=== PATIENT | female | born 1960 | race Caucasian/White ===

== ENCOUNTER → 2017-01-29 | Outpatient (CLI) | payer MEDICARE ==
--- NOTE | 2017-01-30 09:29 | MM ---
Reason for exam: additional evaluation requested from prior study. Last mammogram was performed 1 year and 8 months ago. History: Patient is postmenopausal and has history of high-risk lesion on a previous biopsy at age 52. Family history of breast cancer in maternal aunt, breast cancer in maternal aunt at age 60, and breast cancer in mother at age 71. High risk u/S right breast localization of the right breast, March 10, 2012. High risk US RT VAD breast biopsy of the right breast, February 27, 2012. Benign left mammotome panel of the left breast, October 04, 2008. Took hormonal contraceptives for 9 years beginning at age 19. Indicated problem(s): lump or thickening and pain in the left breast. Physical Findings: Nurse did not find any significant physical abnormalities on exam. MG 3D Diag Mammo W/Cad ELISABET Bilateral CC and MLO view(s) were taken. Prior study comparison: May 29, 2015, bilateral MG 3d screening mammo w/cad. May 19, 2014, right breast MG work up mamm w CAD RT. The breast tissue is heterogeneously dense. This may lower the sensitivity of mammography. Stable benign calcifications. There is chronic nodularity bilaterally. There is no dominant lesion. No significant new findings when compared with previous films. These results were verbally communicated with the patient and result sheet given to the patient on 01/29/17. ASSESSMENT: Benign, BI-RAD 2 RECOMMENDATION: Follow-up diagnostic mammogram of both breasts in 1 year. Manage patient on a clinical basis.
== END | disposition home or self-care (01) ==
LOC: RADMAMWWP 14:14
PROVIDERS: ATTEND Obstetrics & Gynecology
DX: N63 Unspecified lump in breast (principal)
CPT/HCPCS: G0204; G0279

== ENCOUNTER → 2017-06-30 | Outpatient (CLI) | payer MEDICARE ==
--- NOTE | 2017-06-30 21:42 | CT ---
EXAMINATION TYPE: CT sinus wo con DATE OF EXAM: 06/30/2017 COMPARISON: CT sinuses August 28, 2014. HISTORY: Chronic sinusitis per order. Difficulty breathing per patient. CT DLP: 603 mGycm. Automated Exposure Control for Dose Reduction was Utilized. TECHNIQUE: CT scan of the sinuses is performed without contrast, axial images are obtained, coronal r eformatted images are also reviewed. FINDINGS: There is new mild to moderate mucosal thickening right maxillary sinus with frothy opacific ation inferiorly. There is persistent mild mucosal thickening anterior left ethmoid sinuses. Remainde r paranasal sinuses are clear. The surgically treated ostiomeatal complex remains patent bilaterally on the coronal images. Visualized portion of mastoid air cells show no abnormal opacification. The globes are intact bilate rally. Visualized portion of brain parenchyma is unremarkable. There is vascular calcification of di stal internal carotid arteries bilaterally demonstrated slightly more prominent on current study. IMPRESSION: Recurrent acute on chronic right maxillary sinus disease despite evidence of prior sinus surgery.
== END ==
LOC: RADCTMAIN 16:21
PROVIDERS: ATTEND Internal Medicine
DX: J01.01 Acute recurrent maxillary sinusitis (principal); J32.0 Chronic maxillary sinusitis
CPT/HCPCS: 70486

== ENCOUNTER 2017-08-25 11:49 | Inpatient (IN) | payer MEDICARE ==
[2017-08-25] MEDS ORDERED: ALBUTEROL NEBULIZED 2.5 MG/3 ML INHALATION STA (12:20)
[2017-08-25] MEDS ORDERED: SODIUM CHLORIDE 0.9% 500 ML IV STA (12:20)
[2017-08-25] MEDS ORDERED: methylPREDNISolone SOD SUCCI 125 MG/2 ML VIAL IV STA (12:20)
[2017-08-25] MEDS ORDERED: SODIUM CHLORIDE 0.9% 1,000 ML IV STA (12:20)
[2017-08-25 12:43] LABS: Basophils # (A) 0.1 k/uL (0-0.2); Basophils % (A) 0 %; Eosinophils # (A) 0.4 k/uL (0-0.7); Eosinophils % (A) 4 %; HCT 35.7 % (34.0-46.0); HGB 12.4 gm/dL (11.4-16.0); Lymphocytes # (A) 2.5 k/uL (1.0-4.8); Lymphocytes % (A) 22 %; MCH 30.5 pg (25.0-35.0); MCHC 34.6 g/dL (31.0-37.0); MCV 88.2 fL (80.0-100.0); Mean Platelet Volume 6.7; Monocytes # (A) 0.8 k/uL (0-1.0); Monocytes % (A) 7 %; Neutrophils # (A) 7.5 k/uL (1.3-7.7); Neutrophils % (A) 65 %; Platelet Count 496 k/uL (150-450); RBC 4.05 m/uL (3.80-5.40); RDW 13.7 % (11.5-15.5); WBC 11.5 k/uL (3.8-10.6)
[2017-08-25 12:45] LABS: Albumin 4.2 g/dL (3.5-5.0); Calcium 10.4 mg/dL (8.4-10.2); Potassium 3.7 mmol/L (3.5-5.1); Total Bilirubin 0.9 mg/dL (0.2-1.3)
[2017-08-25] MEDS: MORPHINE SULFATE 4MG/4ML SYRG IVP STA ×2 (12:47→14:02)
--- NOTE | 2017-08-25 12:47 | XR ---
EXAMINATION TYPE: XR chest 2V DATE OF EXAM: 08/25/2017 COMPARISON: 11/28/2014 INDICATION: Difficulty breathing TECHNIQUE: Frontal and lateral views of the chest are obtained. FINDINGS: The heart size is normal. The pulmonary vasculature is normal. The lungs are clear. IMPRESSION: 1. No acute pulmonary process.
[2017-08-25 12:54] LABS: D-Dimer 3.79 mg/L FEU (<0.60); Partial Thromboplastin Time 23.6 sec (22.0-30.0); Prothrombin Time 9.5 sec (9.0-12.0)
[2017-08-25 12:56] LABS: Creatine Kinase 129 U/L (30-135)
[2017-08-25 13:10] LABS: Troponin I <0.012 ng/mL (0.000-0.034)
--- NOTE | 2017-08-25 15:12 | US ---
EXAMINATION TYPE: US venous doppler duplex LE LT DATE OF EXAM: 08/25/2017 2:29 PM COMPARISON: NONE CLINICAL HISTORY: Pain. SIDE PERFORMED: Left TECHNIQUE: The lower extremity deep venous system is examined utilizing real time linear array sonog leta with graded compression, doppler sonography and color-flow sonography. VESSELS IMAGED: External Iliac Vein (EIV) Common Femoral Vein Deep Femoral Vein Greater Saphenous Vein * Femoral Vein Popliteal Vein Small Saphenous Vein * Proximal Calf Veins (* superficial vessels) Left Leg: Negative for DVT IMPRESSION: 1. No diagnostic evidence of DVT as visualized.
--- NOTE | 2017-08-25 15:44 | ED ---
SOB HPI - General Chief Complaint: Shortness of Breath Stated Complaint: Diff Breathing Time Seen by Provider: 08/25/17 12:13 Source: patient Mode of arrival: wheelchair Limitations: no limitations - History of Present Illness Initial Comments: 67 years old female had left knee surgery done about 7 days ago presents with the shortness of breath shortness of breath been ongoing for a few days she has no history of pulmonary embolism or DVT she does have a history of firm high blood pressure and now she is quite short winded he doesn't quite fit to take a deep breath and she is tachycardic. Denies any headaches no neck stiffness short of breath no abdominal pain no frequency urgency dysuria - Related Data Home Medications Medication Instructions Recorded Confirmed Citalopram Hydrobromide [CeleXA] 20 mg PO HS 12/20/13 08/25/17 Acyclovir [Zovirax] 400 mg PO DAILY PRN 12/06/15 08/25/17 Albuterol Inhaler [Ventolin Hfa 2 puff INHALATION RT-Q4H PRN 12/06/15 08/25/17 Inhaler] Fluticasone/Salmeterol [Advair 1 puff INHALATION RT-DAILY 12/06/15 08/25/17 250-50 Diskus] Montelukast Sodium [Singulair] 10 mg PO DAILY 12/06/15 08/25/17 Multivitamins, Thera [Multivitamin] 1 tab PO HS 12/06/15 08/25/17 Aspirin EC [Ecotrin Low Dose] 81 mg PO BID 08/25/17 08/25/17 Atorvastatin Calcium [Lipitor] 10 mg PO HS 08/25/17 08/25/17 Cyclobenzaprine [Flexeril] 5 mg PO HS 08/25/17 08/25/17 Fluticasone Nasal [place] [Flonase 1 spray EA NOSTRIL DAILY 08/25/17 08/25/17 Nasal [place]] Gabapentin [Neurontin] 100 mg PO BID 08/25/17 08/25/17 Losartan/Hydrochlorothiazide 1 tab PO HS 08/25/17 08/25/17 [Hyzaar 100-25 Tablet] Meloxicam [Mobic] 7.5 mg PO BID 08/25/17 08/25/17 [place]-3 Fatty Acids [[place]-3] 1,000 mg PO HS 08/25/17 08/25/17 amLODIPine [Norvasc] 2.5 mg PO HS 08/25/17 08/25/17 oxyCODONE-APAP 5-325MG [Percocet 1 tab PO Q4H PRN 08/25/17 08/25/17 5-325 mg] rOPINIRole HCL [Requip] 0.25 mg PO HS 08/25/17 08/25/17 Allergies Allergy/AdvReac Type Severity Reaction Status Date / Time No Known Allergies Allergy Verified 08/25/17 12:37 Review of Systems ROS Statement: Those systems with pertinent positive or pertinent negative responses have been documented in the HPI. ROS Other: All systems not noted in ROS Statement are negative. Past Medical History Past Medical History: Hypertension History of Any Multi-Drug Resistant Organisms: None Reported Past Surgical History: Adenoidectomy, Orthopedic Surgery, Tonsillectomy Additional Past Surgical History / Comment(s): right and left shoulder, lt hip, left knee, nasal surgery Past Psychological History: Depression Smoking Status: Never smoker Past Alcohol Use History: None Reported Past Drug Use History: None Reported General Exam - General Exam Comments Initial Comments: General: The patient is awake and alert, in no distress, and does not appear acutely ill. Very anxious Skin: Skin is warm and dry and no rashes or lesions are noted. Eye: Pupils are equal, round and reactive to light, extra-ocular movements are intact; there is normal conjunctiva bilaterally. Ears, nose, mouth and throat: There are moist mucous membranes and no oral lesions. Neck: The neck is supple, there is no tenderness or JVD. Cardiovascular: There is a regular rate and rhythm. No murmur, rub or gallop is appreciated. During the exam and noticed her heart rate jumps up to 124, the monitor 8 look like a sinus tachycardia she would get tachycardic even when she is only talking was resting Respiratory: To auscultation bilateral, decreased breath sounds bilateral Gastrointestinal: Soft, non-distended, non-tender abdomen without masses or organomegaly noted. There is no rebound or guarding present. Bowel sounds are unremarkable. Back: There is no tenderness to palpation in the midline. There is no obvious deformity. Musculoskeletal: Left knee, she status post total knee swelling noticed below knee and above-knee no obvious signs of infection Neurological: CN II-XII intact, Cranial nerves III through XII are intact. There are no obvious motor or sensory deficits. Coordination appears grossly intact. Speech is normal. Psychiatric: Cooperative, appropriate mood & affect, normal judgment. Limitations: no limitations Course Vital Signs 08/25/17 08/25/17 08/25/17 11:57 12:20 12:42 Temperature 98.3 F Pulse Rate 114 H 100 Respiratory 24 20 Rate Blood Pressure 114/73 O2 Sat by Pulse 97 Oximetry 08/25/17 08/25/17 13:43 14:00 Temperature Pulse Rate 97 85 Respiratory 18 Rate Blood Pressure 113/55 O2 Sat by Pulse 99 Oximetry EKG is a sinus tachycardia ventricular rate is 1 or 2 FL interval is 156 QRS duration is 1 of 4 QT/QTc is 356/463 review of this EKG does not reveal any ST elevation or ST depression , Devious sitting assessment noticed him white count is normal d-dimer is quite elevated noticed creatinine is 1.5 one her aspirin and was 0.8 troponin is negative EKG didn't show any STEMI chest x-rays unremarkable, ultrasound is venous Doppler of the left leg is normal considering she is tachycardic and she is short-winded she is tachycardic even well she is resting she needs to be admitted for further cardiovascular evaluation she would get the 3 sets of cardiac markers cardiology consult and also plan to do a VQ scan since creatinine is high and now Dr. Coughlin or be consulted since he is her manufacturing technologist Medical Decision Making - Lab Data Result diagrams: 08/25/17 12:21 08/25/17 12:21 Lab Results 08/25/17 08/25/17 08/25/17 Range/Units 12:21 12:21 12:21 WBC 11.5 H (3.8-10.6) k/uL RBC 4.05 (3.80-5.40) m/uL Hgb 12.4 (11.4-16.0) gm/dL Hct 35.7 (34.0-46.0) % MCV 88.2 (80.0-100.0) fL MCH 30.5 (25.0-35.0) pg MCHC 34.6 (31.0-37.0) g/dL RDW 13.7 (11.5-15.5) % Plt Count 496 H (150-450) k/uL Neutrophils % 65 % Lymphocytes % 22 % Monocytes % 7 % Eosinophils % 4 % Basophils % 0 % Neutrophils # 7.5 (1.3-7.7) k/uL Lymphocytes # 2.5 (1.0-4.8) k/uL Monocytes # 0.8 (0-1.0) k/uL Eosinophils # 0.4 (0-0.7) k/uL Basophils # 0.1 (0-0.2) k/uL PT (9.0-12.0) sec INR (<1.2) APTT (22.0-30.0) sec D-Dimer (<0.60) mg/L FEU Sodium 139 (137-145) mmol/L Potassium 3.7 (3.5-5.1) mmol/L Chloride 100 (98-107) mmol/L Carbon Dioxide 21 L (22-30) mmol/L Anion Gap 18 mmol/L BUN 22 H (7-17) mg/dL Creatinine 1.51 H (0.52-1.04) mg/dL Est GFR (CKD-EPI)AfAm 44 (>60 ml/min/1.73 sqM) Est GFR (CKD-EPI)NonAf 39 (>60 ml/min/1.73 sqM) Glucose 115 H (74-99) mg/dL Calcium 10.4 H (8.4-10.2) mg/dL Total Bilirubin 0.9 (0.2-1.3) mg/dL AST 30 (14-36) U/L ALT 47 (9-52) U/L Alkaline Phosphatase 91 (38-126) U/L Total Creatine Kinase 129 (30-135) U/L CK-MB (CK-2) 2.0 (0.0-2.4) ng/mL CK-MB (CK-2) Rel Index 1.6 Troponin I <0.012 (0.000-0.034) ng/mL Total Protein 7.0 (6.3-8.2) g/dL Albumin 4.2 (3.5-5.0) g/dL 08/25/17 Range/Units 12:21 WBC (3.8-10.6) k/uL RBC (3.80-5.40) m/uL Hgb (11.4-16.0) gm/dL Hct (34.0-46.0) % MCV (80.0-100.0) fL MCH (25.0-35.0) pg MCHC (31.0-37.0) g/dL RDW (11.5-15.5) % Plt Count (150-450) k/uL Neutrophils % % Lymphocytes % % Monocytes % % Eosinophils % % Basophils % % Neutrophils # (1.3-7.7) k/uL Lymphocytes # (1.0-4.8) k/uL Monocytes # (0-1.0) k/uL Eosinophils # (0-0.7) k/uL Basophils # (0-0.2) k/uL PT 9.5 (9.0-12.0) sec INR 1.0 (<1.2) APTT 23.6 (22.0-30.0) sec D-Dimer 3.79 H (<0.60) mg/L FEU Sodium (137-145) mmol/L Potassium (3.5-5.1) mmol/L Chloride (98-107) mmol/L Carbon Dioxide (22-30) mmol/L Anion Gap mmol/L BUN (7-17) mg/dL Creatinine (0.52-1.04) mg/dL Est GFR (CKD-EPI)AfAm (>60 ml/min/1.73 sqM) Est GFR (CKD-EPI)NonAf (>60 ml/min/1.73 sqM) Glucose (74-99) mg/dL Calcium (8.4-10.2) mg/dL Total Bilirubin (0.2-1.3) mg/dL AST (14-36) U/L ALT (9-52) U/L Alkaline Phosphatase (38-126) U/L Total Creatine Kinase (30-135) U/L CK-MB (CK-2) (0.0-2.4) ng/mL CK-MB (CK-2) Rel Index Troponin I (0.000-0.034) ng/mL Total Protein (6.3-8.2) g/dL Albumin (3.5-5.0) g/dL Disposition Clinical Impression: Dyspnea, Tachycardia Disposition: ADMITTED IP TO THIS [facility] Condition: Good Referrals: Esvin More DO [Primary Care Provider] - 1-2 days
[2017-08-25] MEDS ORDERED: SODIUM CHLORIDE 0.9% 1,000 ML IV ONE (16:03)
[2017-08-25] MEDS ORDERED: NALOXONE 0.4 MG/ML 1 ML VIAL IV PRN (16:05)
[2017-08-25] MEDS ORDERED: ACETAMINOPHEN TAB 325 MG TAB PO PRN (16:05)
[2017-08-25] MEDS ORDERED: MORPHINE SULF 5MG/10ML VL IV PRN (16:05)
[2017-08-25] MEDS ORDERED: ACYCLOVIR 200 MG CAP PO PRN (16:14)
--- NOTE | 2017-08-25 16:43 | P.HPIM ---
History of Present Illness H&P Date: 08/25/17 Chief Complaint: Shortness of breath Patient is a 57-year-old female with a known history of hypertension, COPD and depression came to ER with complaints of difficulty breathing for the past 1 week. Patient is also complaining of cough with yellowish to brown sputum production. Also is complaining of lack of energy and weakness. Patient had left knee total arthroplasty done on July. Patient says that since then she hasn't been feeding very well. Patient has been having increase oral intake. Patient completed her steroid tapering course yesterday. Patient was taking Motrin for the pain and patient was on aspirin for DVT prophylaxis and surgery. Patient was seen by visiting nurse and was found have tachycardic. Patient was sent to Hospital for further evaluation. Patient is not on home oxygen. She was tachycardic with heart rate of 115 on admission. Lower extremities duplex scan is negative.. Creatinine increased from 0.8-1.5. Patient denied any increased left leg swelling or pain. she has no history of pulmonary embolism or DVT . she is quite short winded he doesn't quite fit to take a deep breath and she is tachycardic. Denies any headaches no neck stiffness short of breath no abdominal pain no frequency urgency dysuria. Patient follows with Dr. Coughlin in the pulmonary clinic and primary care physician is Dr. More Chest x-ray showed no acute process D-dimer 3.79 Review of Systems Constitutional: Patient denies any fever or chills . Generalized weakness and malaise. No weight loss Abdomen: Patient does have nausea. No vomiting. No abdominal pain no diarrhea Cardiovascular: Patient denies any chest pain , no leg swelling Respiratory: Cough with sputum production grayish and shortness of breath. Neurologic: Patient denied any numbness or tingling headache. Musculoskeletal: Patient denies any complaints of joint swelling or deformity. Skin: Negative Psychiatric: Negative Endocrine: No heat or cold intolerance. No recent weight gain. Genitourinary: No dysuria or hematuria. All other 14 point ROS negative except the above Past Medical History Past Medical History: Hypertension History of Any Multi-Drug Resistant Organisms: None Reported Past Surgical History: Adenoidectomy, Orthopedic Surgery, Tonsillectomy Additional Past Surgical History / Comment(s): right and left shoulder, lt hip, left knee, nasal surgery Past Psychological History: Depression Smoking Status: Never smoker Past Alcohol Use History: None Reported Past Drug Use History: None Reported Medications and Allergies Home Medications Medication Instructions Recorded Confirmed Type Citalopram Hydrobromide [CeleXA] 20 mg PO HS 12/20/13 08/25/17 History Acyclovir [Zovirax] 400 mg PO DAILY PRN 12/06/15 08/25/17 History Albuterol Inhaler [Ventolin Hfa 2 puff INHALATION RT-Q4H PRN 12/06/15 08/25/17 History Inhaler] Fluticasone/Salmeterol [Advair 1 puff INHALATION RT-DAILY 12/06/15 08/25/17 History 250-50 Diskus] Montelukast Sodium [Singulair] 10 mg PO DAILY 12/06/15 08/25/17 History Multivitamins, Thera [Multivitamin] 1 tab PO HS 12/06/15 08/25/17 History Aspirin EC [Ecotrin Low Dose] 81 mg PO BID 08/25/17 08/25/17 History Atorvastatin Calcium [Lipitor] 10 mg PO HS 08/25/17 08/25/17 History Cyclobenzaprine [Flexeril] 5 mg PO HS 08/25/17 08/25/17 History Fluticasone Nasal [place] [Flonase 1 spray EA NOSTRIL DAILY 08/25/17 08/25/17 History Nasal [place]] Gabapentin [Neurontin] 100 mg PO BID 08/25/17 08/25/17 History Losartan/Hydrochlorothiazide 1 tab PO HS 08/25/17 08/25/17 History [Hyzaar 100-25 Tablet] Meloxicam [Mobic] 7.5 mg PO BID 08/25/17 08/25/17 History [place]-3 Fatty Acids [[place]-3] 1,000 mg PO HS 08/25/17 08/25/17 History amLODIPine [Norvasc] 2.5 mg PO HS 08/25/17 08/25/17 History oxyCODONE-APAP 5-325MG [Percocet 1 tab PO Q4H PRN 08/25/17 08/25/17 History 5-325 mg] rOPINIRole HCL [Requip] 0.25 mg PO HS 08/25/17 08/25/17 History Allergies Allergy/AdvReac Type Severity Reaction Status Date / Time No Known Allergies Allergy Verified 08/25/17 12:37 Physical Exam Vitals: Vital Signs Temp Pulse Resp BP Pulse Ox 08/25/17 16:12 100 20 113/51 96 08/25/17 15:00 103 H 20 115/52 98 08/25/17 14:00 85 18 113/55 99 08/25/17 13:43 97 08/25/17 12:42 100 08/25/17 12:20 20 08/25/17 11:57 98.3 F 114 H 24 114/73 97 Intake and Output 08/25/17 08/25/17 08/25/17 06:59 14:59 22:59 Other: Weight 81.647 kg PHYSICAL EXAMINATION: Patient is lying in the bed comfortably, no acute distress, awake alert and oriented.. HEENT: Normocephalic. Neck is supple. Pupils reactive. Nostrils clear. Oral cavity is moist. Ears reveal no drainage. Neck reveals no JVD, carotid bruits, or thyromegaly. CHEST EXAMINATION: Trachea is central. Symmetrical expansion. Prolonged expiration. No wheezing no crackles or rhonchi CARDIAC: Normal S1, S2 with no gallops. No murmurs ABDOMEN: Soft. Bowel sounds normal. No organomegaly. No abdominal bruits. Extremities: reveal no edema. No clubbing or cyanosis Neurologically awake, alert, oriented x3 with well-coordinated movements. No focal deficits noted Skin: No rash or skin lesions. Psychiatric: Cooperative. Nonsuicidal Musculoskeletal: No joint swelling or deformity. Normal range of motion. Results CBC & Chem 7: 08/25/17 12:21 08/25/17 12:21 Labs: Abnormal Lab Results - Last 24 Hours (Table) 08/25/17 08/25/17 08/25/17 Range/Units 12:21 12:21 12:21 WBC 11.5 H (3.8-10.6) k/uL Plt Count 496 H (150-450) k/uL D-Dimer 3.79 H (<0.60) mg/L FEU Carbon Dioxide 21 L (22-30) mmol/L BUN 22 H (7-17) mg/dL Creatinine 1.51 H (0.52-1.04) mg/dL Glucose 115 H (74-99) mg/dL Calcium 10.4 H (8.4-10.2) mg/dL Thrombosis Risk Factor Assmnt - DVT/VTE Prophylaxis DVT/VTE Prophylaxis: Pharmacologic Prophylaxis ordered Assessment and Plan Assessment: Shortness of breath likely due to COPD with mild exacerbation Suspected pulmonary embolism. With the recent surgery. Patient was tachycardic and shortness of breath on admission with elevated d-dimer D-dimer elevated. VQ scan was ordered to rule out pulmonary embolism. Duplex scan is negative for DVT Generalized weakness and poor oral intake Acute kidney injury most likely prerenal Hypertension GI and DVT prophylaxis Anxiety depression Degenerative joint disease Chronic neck pain, spinal stenosis and Shoulder pain Plan: Patient will be continued on breathing treatments. Patient was given a dose of IV Solu-Medrol in the ER. She recently finished steroid tapering course. VQ scan was ordered due to acute kidney injury to rule out pulmonary embolism. Continue with home medications and pain management. DVT prophylaxis with heparin subcu. Pulmonary will be consulted. Further recommendations based on the clinical course. Time with Patient: Greater than 30
[2017-08-25] MEDS: oxyCODONE-APAP 5-325MG 1 EACH TAB PO PRN ×2 (17:31→21:44)
--- NOTE | 2017-08-25 17:31 | NM ---
EXAMINATION TYPE: NM pul vent and perfuse DATE OF EXAM: 08/25/2017 COMPARISON: Chest radiograph of the same date. HISTORY: Shortness of breath TECHNIQUE: Utilizing inhalation of 64.7 mCi Tc 99m DTPA aerosol and intravenous injection of 5.11 mC i of Tc 99m MAA, ventilation and perfusion images are acquired post injection in multiple projections . FINDINGS: There is a large matched defect within the left upper lobe with perfusion defect larger than the vent ilation defect. This is seen only on the lateral images. Wedge-shaped perfusion defect within the lef t lower lobe on the LPO images is also a matched defect. No corresponding abnormalities are seen on c hest radiograph IMPRESSION: Intermediate probability for pulmonary embolism with matched defects in the left upper lobe and left lower lobe.
[2017-08-25] MEDS ORDERED: HEPARIN SODIUM,PORCINE 5,000 UNIT/ML 1 ML VIAL IV PRN (17:46)
[2017-08-25] MEDS ORDERED: HEPARIN SODIUM,PORCINE 10,000 UNIT/ML 1 ML VIAL IV ONE (17:46)
[2017-08-25] MEDS ORDERED: HEPARIN SOD,PORK IN 0.45% NACL 25,000 UNIT in 0.45% NACL 1 500ML.BAG IV SCH (18:00)
[2017-08-25 19:45] LABS: Creatine Kinase MB 2.1 ng/mL (0.0-2.4)
[2017-08-25] MEDS ORDERED: NON-FORMULARY DRUG (Omega-3 Fatty Acids [Omega-3] 1,000 MG) PO SCH (21:00)
[2017-08-25] MEDS: ATORVASTATIN 10 MG TAB PO SCH (21:44)
[2017-08-25] MEDS: GABAPENTIN 100 MG CAP PO SCH (21:44)
[2017-08-25] MEDS: CYCLOBENZAPRINE 5 MG TAB PO SCH (21:44)
[2017-08-25] MEDS: MULTIVITAMINS, THERA 1 EACH TAB PO SCH (21:44)
[2017-08-25] MEDS: CITALOPRAM HYDROBROMIDE 20 MG TAB PO SCH (21:44)
[2017-08-25] MEDS: amLODIPine 2.5 MG TAB PO SCH (21:45)
[2017-08-25] MEDS: PANTOPRAZOLE SODIUM 40 MG GRANULE PKT PO SCH (21:45)
[2017-08-25] MEDS: ASPIRIN 81 MG PO SCH (21:45)
[2017-08-25] MEDS: LOSARTAN-HCTZ 50-12.5 MG 1 EACH TAB PO SCH (21:45)
[2017-08-25] MEDS ORDERED: MORPHINE ORAL SOLN 10 MG/5 ML CUP PO PRN (22:14)
[2017-08-26] MEDS ORDERED: HEPARIN SODIUM,PORCINE 5,000 UNIT/ML 1 ML VIAL SQ SCH
[2017-08-26 01:00] LABS: Creatine Kinase MB 1.7 ng/mL (0.0-2.4)
[2017-08-26] MEDS: oxyCODONE-APAP 5-325MG 1 EACH TAB PO PRN ×3 (03:49→21:01)
[2017-08-26] MEDS: PANTOPRAZOLE SODIUM 40 MG GRANULE PKT PO SCH (06:32)
[2017-08-26 06:49] LABS: Calcium 9.7 mg/dL (8.4-10.2); Potassium 4.4 mmol/L (3.5-5.1)
[2017-08-26 06:59] LABS: Basophils % (A) 0 %; Eosinophils % (A) 0 %; HCT 31.3 % (34.0-46.0); HGB 10.2 gm/dL (11.4-16.0); Lymphocytes # (A) 1.4 k/uL (1.0-4.8); Lymphocytes % (A) 9 %; MCH 29.5 pg (25.0-35.0); MCHC 32.7 g/dL (31.0-37.0); MCV 90.2 fL (80.0-100.0); Mean Platelet Volume 6.6; Monocytes # (A) 0.6 k/uL (0-1.0); Monocytes % (A) 4 %; Neutrophils # (A) 13.8 k/uL (1.3-7.7); Neutrophils % (A) 87 %; Platelet Count 443 k/uL (150-450); RBC 3.47 m/uL (3.80-5.40); RDW 13.6 % (11.5-15.5)
[2017-08-26] MEDS: GABAPENTIN 100 MG CAP PO SCH ×2 (08:10→21:01)
[2017-08-26] MEDS: MONTELUKAST 10 MG TAB PO SCH (08:10)
[2017-08-26] MEDS: ASPIRIN 81 MG PO SCH ×2 (08:10→21:00)
[2017-08-26] MEDS: FLUTICASONE 50MCG/SPRAY NASAL 16GM EA NOSTRIL SCH (08:13)
[2017-08-26] MEDS: ALBUTEROL NEBULIZED 2.5 MG/3 ML INHALATION PRN ×4 (08:17→20:05)
[2017-08-26] MEDS: SYMBICORT 80-4.5 MCG INHALER INHALATION SCH (08:17)
--- NOTE | 2017-08-26 08:47 | P.CRDCN ---
History of Present Illness Consult date: 08/26/17 Chief complaint: Shortness of breath History of present illness: This is a pleasant [id number] female patient with past medical history significant for hypertension and dyslipidemia who presented to the emergency room complaining of shortness of breath. The patient underwent left knee surgery about a week ago and since then she has not been feeling well. She has been experiencing shortness of breath. No chest pain and no chest discomfort. No dizziness or lightheadedness and no syncope. She does have a component of asthma and she does follow with a insurance marketing rep on regular basis. She underwent a d-dimer in the emergency room and the d-dimer came in to be elevated and subsequently she underwent a VQ scan and that showed intermediate probably T4 PE and subsequently the patient was started on IV heparin. The shortness of breath is a slightly better. The EKG showed sinus tachycardia and she continues to have a heart rate around 100 beats per minute. She underwent a venous duplex study and that revealed no evidence of DVT of the left leg. The patient is not aware of any prior cardiac history. No coronary artery disease but she does have hypertension and dyslipidemia. Past Medical History Past Medical History: Asthma, Cancer, Hyperlipidemia, Hypertension, Pneumonia Additional Past Medical History / Comment(s): sinus problems/allergies, past kidney stone,bronchitis, cervical radiculopathy,pinched nerve. 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 Past Anesthesia/Blood Transfusion Reactions: No Reported Reaction Smoking Status: Never smoker - Past Family History Father Family Medical History: Congestive Heart Failure (CHF), CVA/TIA Additional Family Medical History / Comment(s): sinus problems/allergies Mother Family Medical History: Cancer Medications and Allergies Home Medications Medication Instructions Recorded Confirmed Type Citalopram Hydrobromide [CeleXA] 20 mg PO HS 12/20/13 08/25/17 History Acyclovir [Zovirax] 400 mg PO DAILY PRN 12/06/15 08/25/17 History Albuterol Inhaler [Ventolin Hfa 2 puff INHALATION RT-Q4H PRN 12/06/15 08/25/17 History Inhaler] Fluticasone/Salmeterol [Advair 1 puff INHALATION RT-DAILY 12/06/15 08/25/17 History 250-50 Diskus] Montelukast Sodium [Singulair] 10 mg PO DAILY 12/06/15 08/25/17 History Multivitamins, Thera [Multivitamin] 1 tab PO HS 12/06/15 08/25/17 History Aspirin EC [Ecotrin Low Dose] 81 mg PO BID 08/25/17 08/25/17 History Atorvastatin Calcium [Lipitor] 10 mg PO HS 08/25/17 08/25/17 History Cyclobenzaprine [Flexeril] 5 mg PO HS 08/25/17 08/25/17 History Fluticasone Nasal [facility] [Flonase 1 spray EA NOSTRIL DAILY 08/25/17 08/25/17 History Nasal [facility]] Gabapentin [Neurontin] 100 mg PO BID 08/25/17 08/25/17 History Losartan/Hydrochlorothiazide 1 tab PO HS 08/25/17 08/25/17 History [Hyzaar 100-25 Tablet] Meloxicam [Mobic] 7.5 mg PO BID 08/25/17 08/25/17 History [place]-3 Fatty Acids [[place]-3] 1,000 mg PO HS 08/25/17 08/25/17 History amLODIPine [Norvasc] 2.5 mg PO HS 08/25/17 08/25/17 History oxyCODONE-APAP 5-325MG [Percocet 1 tab PO Q4H PRN 08/25/17 08/25/17 History 5-325 mg] rOPINIRole HCL [Requip] 0.25 mg PO HS 08/25/17 08/25/17 History Allergies Allergy/AdvReac Type Severity Reaction Status Date / Time No Known Allergies Allergy Verified 08/25/17 12:37 Physical Exam Vitals: Vital Signs Temp Pulse Pulse Resp BP BP Pulse Ox 08/26/17 08:31 92 08/26/17 08:19 92 08/26/17 08:00 97.1 F L 103 H 20 122/64 96 08/26/17 04:00 99 18 142/84 95 08/26/17 00:00 97.2 F L 109 H 18 118/61 92 L 08/25/17 20:00 99.2 F 103 H 18 123/67 94 L 08/25/17 19:04 99.3 F 109 H 16 116/55 97 08/25/17 17:15 98.0 F 105 H 20 117/56 98 08/25/17 16:12 100 20 113/51 96 08/25/17 15:00 103 H 20 115/52 98 08/25/17 14:00 85 18 113/55 99 08/25/17 13:43 97 08/25/17 12:42 100 08/25/17 12:20 20 08/25/17 11:57 98.3 F 114 H 24 114/73 97 Intake and Output 08/25/17 08/26/17 08/26/17 22:59 06:59 14:59 Intake Total 195.933 240 Balance 195.933 240 Intake: Intake, IV Titration 195.933 Amount Heparin Sod,Pork in 0.45% 195.933 NaCl 25,000 unit In 0.45 % NaCl 1 500ml.bag @ 18 UNITS/KG/HR 29.39 mls/hr IV .Q17H1M [facility] Rx#: [id number] Oral 240 Other: Voiding Method Toilet Toilet # Voids 1 Weight 84.1 kg - Constitutional General appearance: no acute distress - Respiratory Respiratory: bilateral: CTA - Cardiovascular Rhythm: regular Heart sounds: normal: S1, S2 Results 08/26/17 06:10 08/26/17 06:10 Cardiac Enzymes 08/25/17 08/25/17 08/25/17 Range/Units 12:21 12:21 18:49 AST 30 (14-36) U/L CK-MB (CK-2) 2.0 2.1 (0.0-2.4) ng/mL Troponin I <0.012 (0.000-0.034) ng/mL 08/26/17 Range/Units 00:08 AST (14-36) U/L CK-MB (CK-2) 1.7 (0.0-2.4) ng/mL Troponin I (0.000-0.034) ng/mL Coagulation 08/25/17 08/26/17 08/26/17 Range/Units 12:21 00:08 06:10 PT 9.5 (9.0-12.0) sec APTT 23.6 84.8 H 51.5 H (22.0-30.0) sec CBC 08/25/17 08/26/17 Range/Units 12:21 06:10 WBC 11.5 H 16.0 H (3.8-10.6) k/uL RBC 4.05 3.47 L (3.80-5.40) m/uL Hgb 12.4 10.2 L (11.4-16.0) gm/dL Hct 35.7 31.3 L (34.0-46.0) % Plt Count 496 H 443 (150-450) k/uL Comprehensive Metabolic Panel 08/25/17 08/26/17 Range/Units 12:21 06:10 Sodium 139 137 (137-145) mmol/L Potassium 3.7 4.4 (3.5-5.1) mmol/L Chloride 100 105 (98-107) mmol/L Carbon Dioxide 21 L 21 L (22-30) mmol/L BUN 22 H 26 H (7-17) mg/dL Creatinine 1.51 H 1.14 H (0.52-1.04) mg/dL Glucose 115 H 134 H (74-99) mg/dL Calcium 10.4 H 9.7 (8.4-10.2) mg/dL AST 30 (14-36) U/L ALT 47 (9-52) U/L Alkaline Phosphatase 91 (38-126) U/L Total Protein 7.0 (6.3-8.2) g/dL Albumin 4.2 (3.5-5.0) g/dL Current Medications Generic Name Dose Route Start Last Admin Trade Name Freq PRN Reason Stop Dose Admin Acetaminophen 650 mg 08/25/17 16:05 Tylenol Tab PO Q6HR PRN Mild Pain or Fever > 100.5 Acyclovir 400 mg 08/25/17 16:14 Zovirax PO DAILY PRN virus Albuterol Sulfate 2.5 mg 08/25/17 16:14 08/26/17 08:17 Ventolin Nebulized INHALATION 2.5 mg RT-Q4H PRN Administration Shortness Of Breath Amlodipine Besylate 2.5 mg 08/25/17 21:00 08/25/17 21:45 Norvasc PO 2.5 mg HS [facility] Administration Aspirin 81 mg 08/25/17 21:00 08/26/17 08:10 Aspirin PO 81 mg BID YURIDIA Administration Atorvastatin Calcium 10 mg 08/25/17 21:00 08/25/17 21:44 Lipitor PO 10 mg HS YURIDIA Administration Budesonide/Formoterol Fumarate 2 puff 08/26/17 08:00 08/26/17 08:17 Symbicort 80-4.5 Mcg Inhaler INHALATION 2 puff RT-DAILY Y[facility]IDIA Administration Citalopram Hydrobromide 20 mg 08/25/17 21:00 08/25/17 21:44 Celexa PO 20 mg HS Y[facility]IA Administration Cyclobenzaprine HCl 5 mg 08/25/17 21:00 08/25/17 21:44 Flexeril PO 5 mg HS [facility]IA Administration Fluticasone Propionate 1 spray 08/26/17 09:00 08/26/17 08:13 Flonase Nasal [facility] EA NOSTRIL 1 spray DAILY [facility]IA Administration Gabapentin 100 mg 08/25/17 21:00 08/26/17 08:10 Neurontin PO 100 mg BID Y[facility]IDIA Administration HCTZ/Losartan Potassium 2 each 08/25/17 21:00 08/25/17 21:45 Hyzaar 50-12.5 PO 2 each HS Y[facility]IDIA Administration Heparin Sodium (Porcine) 0 unit 08/25/17 17:46 Heparin IV PER PROTOCOL PRN Low PTT Protocol Heparin Sodium/Sodium Chloride 500 mls @ 29.39 mls/hr 08/25/17 18:00 01:03 25,000 unit/ Sodium Chloride IV 16 units/kg/hr .Q17H1M [facility] 26.12 mls/hr Protocol Titration 18 UNITS/KG/HR Montelukast Sodium 10 mg 08/26/17 09:00 08/26/17 08:10 Singulair PO 10 mg DAILY YURIDIA Administration Morphine Sulfate 12 mg 08/25/17 22:14 Morphine Oral Jihan 2mg/Ml PO Q4HR PRN Severe Pain Multivitamins 1 each 08/25/17 21:00 08/25/17 21:44 Theragran PO 1 each HS Y[facility]IDIA Administration Naloxone HCl 0.2 mg 08/25/17 16:05 Narcan IV Q2M PRN Opioid Reversal Oxycodone/Acetaminophen 1 each 08/25/17 16:14 08/26/17 03:49 Percocet 5-325 PO 1 each Q4H PRN Administration Pain Pantoprazole Sodium 40 mg 08/25/17 16:45 08/26/17 06:32 Protonix PO 40 mg AC-BRKFST YURIDIA Administration Ropinirole HCl 0.25 mg 08/25/17 21:00 08/25/17 21:45 Requip PO 0.25 mg HS YURIDIA Administration Intake and Output 08/25/17 08/26/17 08/26/17 22:59 06:59 14:59 Intake Total 195.933 240 Balance 195.933 240 Intake: Intake, IV Titration 195.933 Amount Heparin Sod,Pork in 0.45% 195.933 NaCl 25,000 unit In 0.45 % NaCl 1 500ml.bag @ 18 UNITS/KG/HR 29.39 mls/hr IV .Q17H1M [facility] Rx#: [id number] Oral 240 Other: Voiding Method Toilet Toilet # Voids 1 Weight 84.1 kg 08/26/17 06:10 08/26/17 06:10 Assessment and Plan Assessment: Assessment #1 status post left knee surgery #2 PE, likely to be provokable #3 no evidence of DVT #4 sinus tachycardia which is likely secondary to PE #5 hypertension Plan #1 I would start the patient on oral anticoagulation and DC the heparin #2 obtain an echocardiogram to assess the RV dimension and for any evidence of pulmonary hypertension secondary to be #3 the troponin was checked and that came in to be within normal limits. Which is a good prognostic sign #4 follow-up with the patient. We'll continue following up with her I thank you for allowing us but spitting her care
[2017-08-26] MEDS: RIVAROXABAN 15 MG TAB PO SCH ×2 (10:19→18:01)
[2017-08-26] MEDS ORDERED: SENNOSIDES 8.6 MG TAB PO PRN (11:14)
--- NOTE | 2017-08-26 14:11 | P.CNPUL ---
History of Present Illness Consult date: 08/26/17 Requesting physician: Marilyn Wilkins Reason for consult: dyspnea, abnormal CXR/CT Chief complaint: Shortness of breath, palpitations History of present illness: This is a very pleasant 57-year-old female patient who follows with Dr. More as her primary care physician. She has a history of hypertension, hyperlipidemia, osteoarthritis. She also has a history of chronic bronchial asthma and follows with Dr. Coughlin in our office for the same. She is maintained on Advair, Singulair, Ventolin HFA. Her asthma has been well controlled. She had undergone a total left knee arthroplasty by Dr. Bal on . She had been treated with aspirin 81 mg daily. She had been home recovering quite well. On August 25 the visiting nurse was over and noted her to have a fast heartbeat. The patient had been short of breath with minimal exertion. She did have some diaphoresis and fatigue. She presented here to the emergency room for the same. Chest x-ray revealed no acute pulmonary process. D-dimer 3.79. Creatinine 1.51. Doppler of the left lower extremity revealed no DVT. VQ scan scan revealed intermediate probability for pulmonary emboli in the left upper and left lower lobes. EKG reveals sinus tachycardia. She was 97% O2 saturations on room air. She was admitted and initiated on a heparin drip. No previous history of DVT/PE, no family history, no cancer, most likely provoked by surgery. She is seen today in consultation on the selective care unit. She is awake and alert in no acute distress. She is maintaining good O2 saturations in the 90s on room air. She denies any chest pain, palpitations, lightheadedness or dizziness. No shortness of breath at rest. No hemoptysis. Review of Systems Constitutional: Reports fatigue, Reports weakness Eyes: denies blurred vision, denies decreased vision Ears: deny: decreased hearing Ears, nose, mouth and throat: Denies headache, Denies sore throat Cardiovascular: Reports rapid heart beat, Reports shortness of breath Respiratory: Reports dyspnea, Reports pain on inspiration Gastrointestinal: Denies abdominal pain, Denies diarrhea, Denies nausea, Denies vomiting Genitourinary: Denies dysuria, Denies hematuria Musculoskeletal: Reports limitation of motion Musculoskeletal: left: knee swelling Integumentary: Denies pruritus, Denies rash Neurological: Denies numbness, Denies weakness Psychiatric: Denies anxiety, Denies depression Endocrine: Denies fatigue, Denies weight change Past Medical History Past Medical History: Asthma, Cancer, Hyperlipidemia, Hypertension, Pneumonia Additional Past Medical History / Comment(s): sinus problems/allergies, past kidney stone,bronchitis, cervical radiculopathy,pinched nerve. 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 Past Anesthesia/Blood Transfusion Reactions: No Reported Reaction Smoking Status: Never smoker - Past Family History Father Family Medical History: Congestive Heart Failure (CHF), CVA/TIA Additional Family Medical History / Comment(s): sinus problems/allergies Mother Family Medical History: Cancer Medications and Allergies Home Medications Medication Instructions Recorded Confirmed Type Citalopram Hydrobromide [CeleXA] 20 mg PO HS 12/20/13 08/25/17 History Acyclovir [Zovirax] 400 mg PO DAILY PRN 12/06/15 08/25/17 History Albuterol Inhaler [Ventolin Hfa 2 puff INHALATION RT-Q4H PRN 12/06/15 08/25/17 History Inhaler] Fluticasone/Salmeterol [Advair 1 puff INHALATION RT-DAILY 12/06/15 08/25/17 History 250-50 Diskus] Montelukast Sodium [Singulair] 10 mg PO DAILY 12/06/15 08/25/17 History Multivitamins, Thera [Multivitamin] 1 tab PO HS 12/06/15 08/25/17 History Aspirin EC [Ecotrin Low Dose] 81 mg PO BID 08/25/17 08/25/17 History Atorvastatin Calcium [Lipitor] 10 mg PO HS 08/25/17 08/25/17 History Cyclobenzaprine [Flexeril] 5 mg PO HS 08/25/17 08/25/17 History Fluticasone Nasal [place] [Flonase 1 spray EA NOSTRIL DAILY 08/25/17 08/25/17 History Nasal [place]] Gabapentin [Neurontin] 100 mg PO BID 08/25/17 08/25/17 History Losartan/Hydrochlorothiazide 1 tab PO HS 08/25/17 08/25/17 History [Hyzaar 100-25 Tablet] Meloxicam [Mobic] 7.5 mg PO BID 08/25/17 08/25/17 History [place]-3 Fatty Acids [[place]-3] 1,000 mg PO HS 08/25/17 08/25/17 History amLODIPine [Norvasc] 2.5 mg PO HS 08/25/17 08/25/17 History oxyCODONE-APAP 5-325MG [Percocet 1 tab PO Q4H PRN 08/25/17 08/25/17 History 5-325 mg] rOPINIRole HCL [Requip] 0.25 mg PO HS 08/25/17 08/25/17 History Allergies Allergy/AdvReac Type Severity Reaction Status Date / Time No Known Allergies Allergy Verified 08/25/17 12:37 Physical Exam Vitals: Vital Signs Temp Pulse Pulse Resp BP BP Pulse Ox 08/26/17 12:00 97.7 F 100 20 133/62 97 08/26/17 11:29 100 08/26/17 11:21 99 08/26/17 11:19 95 08/26/17 08:31 92 08/26/17 08:19 92 08/26/17 08:00 97.1 F L 103 H 20 122/64 96 08/26/17 04:00 99 18 142/84 95 08/26/17 00:00 97.2 F L 109 H 18 118/61 92 L 08/25/17 20:00 99.2 F 103 H 18 123/67 94 L 08/25/17 19:04 99.3 F 109 H 16 116/55 97 08/25/17 17:15 98.0 F 105 H 20 117/56 98 08/25/17 16:12 100 20 113/51 96 08/25/17 15:00 103 H 20 115/52 98 08/25/17 14:00 85 18 113/55 99 Intake and Output 08/25/17 08/26/17 08/26/17 22:59 06:59 14:59 Intake Total 195.933 738 Output Total 800 Balance 195.933 -62 Intake: IV 276 Heparin Sod,Pork in 0.45% 156 NaCl 25,000 unit In 0.45 % NaCl 1 500ml.bag @ 18 UNITS/KG/HR 29.39 mls/hr IV .Q17H1M [facility] Rx#: [id number] Sodium Chloride 0.9% 1, 120 000 ml @ 100 mls/hr IV . Q10H [facility] Rx#:[id number] Intake, IV Titration 195.933 Amount Heparin Sod,Pork in 0.45% 195.933 NaCl 25,000 unit In 0.45 % NaCl 1 500ml.bag @ 18 UNITS/KG/HR 29.39 mls/hr IV .Q17H1M [facility] Rx#: [id number] Oral 462 Output: Urine 800 Other: Voiding Method Toilet Toilet Toilet # Voids 1 1 Weight 84.1 kg GENERAL EXAM: Alert, active, comfortable in no apparent distress. HEAD: Normocephalic. EYES: Normal reaction of pupils, equal size. NOSE: Clear with pink turbinates. THROAT: No erythema or exudates. NECK: No masses, no JVD. CHEST: No chest wall deformity. LUNGS: Equal air entry with no crackles, wheeze, rhonchi or dullness. CVS: S1 and S2 normal with no audible murmur, regular rhythm. ABDOMEN: No hepatosplenomegaly, normal bowel sounds, no guarding or rigidity. SPINE: No scoliosis or deformity SKIN: No rashes CENTRAL NERVOUS SYSTEM: No focal deficits, tone is normal in all 4 extremities. EXTREMITIES: Dressing to left knee dry and intact. There is trace peripheral edema. No clubbing, no cyanosis. Peripheral pulses are intact. Results - Laboratory Findings CBC and BMP: 08/26/17 06:10 08/26/17 06:10 PT/INR, D-dimer PT 9.5 sec (9.0-12.0) 08/25/17 12:21 INR 1.0 (<1.2) 08/25/17 12:21 D-Dimer 3.79 mg/L FEU (<0.60) H 08/25/17 12:21 Abnormal lab findings: Abnormal Labs 08/25/17 08/25/17 08/25/17 12:21 12:21 12:21 WBC 11.5 H RBC Hgb Hct Plt Count 496 H Neutrophils # APTT D-Dimer 3.79 H Carbon Dioxide 21 L BUN 22 H Creatinine 1.51 H Glucose 115 H Calcium 10.4 H 08/26/17 08/26/17 08/26/17 00:08 06:10 06:10 WBC 16.0 H RBC 3.47 L Hgb 10.2 L Hct 31.3 L Plt Count Neutrophils # 13.8 H APTT 84.8 H D-Dimer Carbon Dioxide 21 L BUN 26 H Creatinine 1.14 H Glucose 134 H Calcium 08/26/17 06:10 WBC RBC Hgb Hct Plt Count Neutrophils # APTT 51.5 H D-Dimer Carbon Dioxide BUN Creatinine Glucose Calcium - Diagnostic Findings Chest x-ray: image reviewed Assessment and Plan Assessment: Impression: #1 Dyspnea with intermediate probability of pulmonary emboli in the left upper and lower lobes provoked by recent left total knee arthroplasty on 08/17/2017 with limited mobility. #2 Sinus tachycardia secondary to above. #3 Chronic bronchial asthma currently inactive and stable. #4 Hypertension. #5 Hyperlipidemia. #6 Osteoarthritis. #7 History of depression. Plan: The patient was seen and evaluated by Dr. Coughlin. Chest x-ray, VQ scan and labs were all reviewed. Patient most likely has a provoked PE. Heparin drip has been discontinued. The patient has been initiated on Xarelto. Most likely provoked PE that would need treatment for 3-6 months. Echocardiogram is pending to rule out any significant right ventricular strain. Continue albuterol, Singulair, Symbicort. We will increase her activity as tolerated. We'll continue to follow and make further recommendations based on her clinical status. I, the cosigning physician, performed a history & physical examination of the patient. Lungs sounds are clear. Maintaining good O2 saturations in the 90s on room air. I discussed the assessment and plan of care with my nurse practitioner, Yoselyn Landry. I attest to the above consultation as dictated by her. Time with Patient: Greater than 30
[2017-08-26] MEDS: DOCUSATE 100 MG CAP PO SCH ×2 (14:43→21:01)
[2017-08-26] MEDS: SODIUM CHLORIDE 0.9% 1,000 ML IV SCH (15:09)
[2017-08-26] MEDS ORDERED: RX INFO: IV CONTRAST WAS GIVEN 1 EACH MISC MISCELLANE PRN (16:32)
[2017-08-26 16:35] LABS: Appearance,Urine Clear (Clear); Bilirubin,Urine Negative (Negative); Blood,Urine Negative (Negative); Color,Urine Light Yellow; Glucose,Urine (UA) Negative (Negative); Ketones,Urine Negative (Negative); Leukocyte Esterase,Urine Negative (Negative); Nitrite,Urine Negative (Negative); PH, Urine 5.5 (5.0-8.0); Protein,Urine Negative (Negative); Specific Gravity,Urine 1.011 (1.001-1.035); Urobilinogen,Urine <2.0 mg/dL (<2.0)
--- NOTE | 2017-08-26 17:12 | CONS ---
CONSULTATION REASON FOR CONSULT: Renal failure. HISTORY OF PRESENT ILLNESS: The patient is a 57-year-old female who recently had left knee arthroplasty on August 17, 2017. She was admitted to the hospital with complaints of shortness of breath, palpitations. She was advised by the home care nurse to proceed to the ER. The patient was found to have an intermediate probability for PE with matched defects in the left upper lobe and left lower lobe. She has been started on IV heparin. She has been switched over to Xarelto. Also, the patient denies any prior history of kidney diseases. However, she has had kidney stones in the past and lithotripsy. Serum creatinine was 1.5 mg/dL on admission. She is maintained on IV fluids and creatinine is down to 1.14. Review of previous labs shows a serum creatinine 0.8 on 03/23/2017. Patient did admit to use of nonsteroidal anti-inflammatory agents prior to admission. Her blood pressure has not been significantly low and patient has not had any and CT with IV contrast. No recent episodes of kidney stones. PAST MEDICAL HISTORY: Osteoarthritis, hypertension. Dyslipidemia and asthma. PAST SURGICAL HISTORY: Adenoidectomy and tonsillectomy. Right bilateral shoulder surgery, left hip arthroplasty, left knee arthroplasty recently on 08/17/2017. SOCIAL HISTORY: Negative for smoking, drug abuse or alcohol abuse. MEDICATIONS: Medications at home prior to admission include Celexa, Zovirax, Singulair, Lipitor, Flexeril, Neurontin, losartan, hydrochlorothiazide, Mobic, Norvasc, Requip, Percocet. ALLERGIES: None. . REVIEW OF SYSTEMS: As per HPI. Other systems negative. PHYSICAL EXAMINATION: Patient is currently comfortable, awake, alert, oriented x3. She is not in any acute distress. Blood pressure is 133/62, heart rate 100 per minute. Patient is afebrile. Examination of the heart S1, S2. Examination of the lungs bilateral breath sounds are heard. Abdomen is soft, nontender. Examination lower extremities shows no evidence of edema. FIL[employer] PROCESSING [employer]PER[employer] exam is grossly intact and the patient is moving all 4 extremities. LAB: Show sodium 137, potassium 4.4, chloride 105, BUN 26, serum creatinine 1.14, hemoglobin 10.2 g/dL. We do not have a urinalysis. ASSESSMENT: 1. Acute kidney injury secondary to use of NSAIDs, currently improved. We will hold off on all nonsteroidal anti-inflammatory agents. The patient is not on any nephrotoxic medications. May continue with the angiotensin receptor blockers. I will start gentle IV hydration. Blood pressure has previously been slightly on the lower side with systolic of 116 and 118 but currently it is at 133 mmHg systolic. I will not decrease the Hyzaar yet. 2. Intermediate possibility for pulmonary embolism, post left knee arthroplasty. Currently maintained on Xarelto. 3. Recent left knee arthroplasty. 4. Hypertension with good control. Perhaps blood pressure slightly on the lower side. 5. Asthma, controlled. 6. Sinus tachycardia secondary to underlying pulmonary embolism. PLAN: Start gentle IV hydration. Hold off on all NSAIDs even after discharge. May continue with current dose of Hyzaar for now. Check urinalysis. Thank you for this consultation. We will continue to follow the patient with you during her hospitalization. MMODL / IJN: [id number] /
[2017-08-26] MEDS: CITALOPRAM HYDROBROMIDE 20 MG TAB PO SCH (21:00)
[2017-08-26] MEDS: ATORVASTATIN 10 MG TAB PO SCH (21:00)
[2017-08-26] MEDS: amLODIPine 2.5 MG TAB PO SCH (21:00)
[2017-08-26] MEDS: CYCLOBENZAPRINE 5 MG TAB PO SCH (21:00)
[2017-08-26] MEDS: MULTIVITAMINS, THERA 1 EACH TAB PO SCH (21:01)
[2017-08-26] MEDS: LOSARTAN-HCTZ 50-12.5 MG 1 EACH TAB PO SCH (21:01)
[2017-08-26 21:22] VITALS: RESP 18
--- NOTE | 2017-08-27 00:11 | P.PN ---
Subjective Progress Note Date: 08/26/17 Principal diagnosis: Acute pulmonary embolism Patient is a 57-year-old female with a known history of hypertension, COPD and depression came to ER with complaints of difficulty breathing for the past 1 week. Patient is also complaining of cough with yellowish to brown sputum production. Also is complaining of lack of energy and weakness. Patient had left knee total arthroplasty done on July. Patient says that since then she hasn't been feeding very well. Patient has been having increase oral intake. Patient completed her steroid tapering course yesterday. Patient was taking Motrin for the pain and patient was on aspirin for DVT prophylaxis and surgery. Patient was seen by visiting nurse and was found have tachycardic. Patient was sent to Hospital for further evaluation. Patient is not on home oxygen. She was tachycardic with heart rate of 115 on admission. Lower extremities duplex scan is negative.. Creatinine increased from 0.8-1.5. Patient denied any increased left leg swelling or pain. she has no history of pulmonary embolism or DVT . she is quite short winded he doesn't quite fit to take a deep breath and she is tachycardic. Denies any headaches no neck stiffness short of breath no abdominal pain no frequency urgency dysuria. Patient follows with Dr. Coughlin in the pulmonary clinic and primary care physician is Dr. More Chest x-ray showed no acute process D-dimer 3.79 08/26/2017 Patient says that her shortness of breath is better today. Heparin has been discontinued and patient was started on oral anticoagulants. No complaints of chest pain. 2-D levocardia was ordered. Troponin is not elevated. Cardiology and pulmonary is following. Patient is also getting physical therapy No other acute overnight issues. Current medications reviewed Objective - Vital Signs Vital signs: Vital Signs Temp 97.2 F L 08/26/17 20:00 Pulse 94 08/26/17 20:20 Resp 18 08/26/17 20:00 BP 130/70 08/26/17 20:00 Pulse Ox 94 L 08/26/17 20:00 Intake & Output 08/26/17 08/26/17 08/27/17 06:59 18:59 06:59 Intake Total 195.933 978 Output Total 1300 Balance 195.933 -322 Weight 84.1 kg Intake: IV 276 Heparin Sod,Pork in 0.45% 156 NaCl 25,000 unit In 0.45 % NaCl 1 500ml.bag @ 18 UNITS/KG/HR 29.39 mls/hr IV .Q17H1M YURIDIA Rx#: [id number] Sodium Chloride 0.9% 1, 120 000 ml @ 100 mls/hr IV . Q10H STA Rx#:[id number] Intake, IV Titration 195.933 Amount Heparin Sod,Pork in 0.45% 195.933 NaCl 25,000 unit In 0.45 % NaCl 1 500ml.bag @ 18 UNITS/KG/HR 29.39 mls/hr IV .Q17H1M YURIDIA Rx#: [id number] Oral 702 Output: Urine 1300 Other: Voiding Method Toilet Toilet Toilet # Voids 1 1 - Exam PHYSICAL EXAMINATION: Patient is lying in the bed comfortably, no acute distress, awake alert and oriented.. HEENT: Normocephalic. Neck is supple. Pupils reactive. Nostrils clear. Oral cavity is moist. Ears reveal no drainage. Neck reveals no JVD, carotid bruits, or thyromegaly. CHEST EXAMINATION: Trachea is central. Symmetrical expansion. Lung mayer clear to auscultation and percussion. CARDIAC: Normal S1, S2 with no gallops. No murmurs ABDOMEN: Soft. Bowel sounds normal. No organomegaly. No abdominal bruits. Extremities: reveal no edema. No clubbing or cyanosis Neurologically awake, alert, oriented x3 with well-coordinated movements. No focal deficits noted Skin: No rash or skin lesions. Psychiatric: Coperative. Nonsuicidal Musculoskeletal: No joint swelling or deformity. Normal range of motion. - Labs CBC & Chem 7: 08/26/17 06:10 08/26/17 06:10 Labs: Abnormal Lab Results - Last 24 Hours (Table) 08/26/17 08/26/17 08/26/17 Range/Units 00:08 06:10 06:10 WBC 16.0 H (3.8-10.6) k/uL RBC 3.47 L (3.80-5.40) m/uL Hgb 10.2 L (11.4-16.0) gm/dL Hct 31.3 L (34.0-46.0) % Neutrophils # 13.8 H (1.3-7.7) k/uL APTT 84.8 H (22.0-30.0) sec Carbon Dioxide 21 L (22-30) mmol/L BUN 26 H (7-17) mg/dL Creatinine 1.14 H (0.52-1.04) mg/dL Glucose 134 H (74-99) mg/dL 08/26/17 Range/Units 06:10 WBC (3.8-10.6) k/uL RBC (3.80-5.40) m/uL Hgb (11.4-16.0) gm/dL Hct (34.0-46.0) % Neutrophils # (1.3-7.7) k/uL APTT 51.5 H (22.0-30.0) sec Carbon Dioxide (22-30) mmol/L BUN (7-17) mg/dL Creatinine (0.52-1.04) mg/dL Glucose (74-99) mg/dL Assessment and Plan Assessment: Shortness of breath likely due to COPD with mild exacerbation Acute pulmonary embolism with intermediate probability of PE in the VQ scan. Possibly provoked with recent surgery/immobility. Patient was tachycardic and shortness of breath on admission with elevated d-dimer D-dimer elevated. Duplex scan is negative for DVT Generalized weakness and poor oral intake Acute kidney injury most likely prerenal Hypertension GI and DVT prophylaxis Anxiety depression Degenerative joint disease Chronic neck pain, spinal stenosis and Shoulder pain Plan: Patient will be continued on breathing treatments. Heparin drip has been discontinued and patient was started on Xarelto. Prescription has been sent to pharmacy. 2-D echo Cardizem was ordered to rule out any right ventricular strain. Pulmonary and cardiology is following Patient was given a dose of IV Solu-Medrol in the ER. She recently finished steroid tapering course. Continue with home medications and pain management. Further recommendations based on the clinical course. Time with Patient: Greater than 30
[2017-08-27] MEDS: oxyCODONE-APAP 5-325MG 1 EACH TAB PO PRN ×3 (06:04→15:43)
[2017-08-27] MEDS: PANTOPRAZOLE SODIUM 40 MG GRANULE PKT PO SCH (06:04)
[2017-08-27] MEDS: RIVAROXABAN 15 MG TAB PO SCH (06:04)
[2017-08-27 06:32] LABS: Basophils % (A) 0 %; Eosinophils # (A) 0.1 k/uL (0-0.7); Eosinophils % (A) 1 %; HCT 30.5 % (34.0-46.0); HGB 10.2 gm/dL (11.4-16.0); Lymphocytes # (A) 2.8 k/uL (1.0-4.8); Lymphocytes % (A) 24 %; MCH 30.4 pg (25.0-35.0); MCHC 33.4 g/dL (31.0-37.0); MCV 90.9 fL (80.0-100.0); Mean Platelet Volume 6.5; Monocytes # (A) 0.6 k/uL (0-1.0); Monocytes % (A) 5 %; Neutrophils # (A) 7.9 k/uL (1.3-7.7); Neutrophils % (A) 68 %; Platelet Count 422 k/uL (150-450); RBC 3.36 m/uL (3.80-5.40); RDW 13.6 % (11.5-15.5); WBC 11.7 k/uL (3.8-10.6)
[2017-08-27 06:41] LABS: Calcium 9.6 mg/dL (8.4-10.2)
[2017-08-27] MEDS: ALBUTEROL NEBULIZED 2.5 MG/3 ML INHALATION PRN ×2 (08:08→11:13)
[2017-08-27] MEDS: SYMBICORT 80-4.5 MCG INHALER INHALATION SCH (08:08)
--- NOTE | 2017-08-27 08:12 | CT ---
EXAMINATION TYPE: CT chest angio for PE DATE OF EXAM: 08/27/2017 COMPARISON: NONE HISTORY: Shortness of breath CT DLP: 294.6 mGycm. Automated Exposure Control for Dose Reduction was Utilized. CONTRAST: CTA scan of the thorax is performed with IV Contrast, patient injected with 80 mL of Isovue 370, pulm onary embolism protocol. MIP Images are created on CT scanner and reviewed. FINDINGS: LUNGS: There is minimal bibasilar subsegmental atelectasis. Otherwise the lungs are grossly clear, th ere is no concerning parenchymal mass or nodule identified. There is no pleural effusion or pneumot horax seen. The tracheobronchial tree is patent. MEDIASTINUM: There is satisfactory enhancement of the pulmonary artery and its branches, there is no CT evidence for pulmonary embolism. There are no greater than 1 cm hilar or mediastinal lymph nodes. No cardiomegaly or pericardial effusion is seen. OTHER: There is partial visualization of a fluid attenuated hepatic lesion measuring 1.3 cm on the mo st inferior image series 4 image 141. Overall there is diffuse hypoattenuation of the entirety of the hepatic parenchyma favoring hepatic steatosis. There is also partial visualization of an approximate ly 2.1 cm left hepatic lesion not compatible with a benign adenoma on this examination. A small hiata l hernia seen. IMPRESSION: 1. No evidence of pulmonary embolus. 2. Minimal bibasilar subsegmental dependent atelectasis. 3. Partially visualized probable hepatic cyst and indeterminant adrenal gland lesion. Further charact erization with dynamic enhanced CT abdomen (adrenal mass protocol) is recommended.
--- NOTE | 2017-08-27 08:19 | P.PN ---
Subjective Patient is seen in follow-up for acute kidney injury. Her creatinine was 1.5 on admission and is down to 0.96 today. Etiology was use of nonsteroidals after she had her left total knee arthroplasty in August 17. She is currently maintained on normal saline at 100 mL an hour. Patient presented with dyspnea and is concerned for pulmonary embolism. She underwent CTA this morning. Hemodynamically stable. Denies chest pain or shortness of breath. Vital signs are stable. General: The patient appeared well nourished and normally developed. HEENT: Head exam is unremarkable. Neck is without jugular venous distension. LUNGS: Lungs are clear to auscultation and percussion. Breath sounds decreased. HEART: Rate and Rhythm are regular. First and second heart sounds normal. No murmurs, rubs or gallops. ABDOMEN: Abdominal exam reveals normal bowel sounds. Non-tender and non- distended. No evidence of peritonitis. EXTREMITITES: No clubbing, cyanosis, or edema. Objective - Vital Signs Vital signs: Vital Signs Temp 97.0 F L 08/27/17 04:00 Pulse 95 08/27/17 08:14 Resp 18 08/27/17 04:00 BP 147/97 08/27/17 04:00 Pulse Ox 97 08/27/17 04:00 Intake & Output 08/26/17 08/27/17 08/27/17 18:59 06:59 18:59 Intake Total 978 200 Output Total 1300 Balance -322 200 Weight 85.5 kg Intake: IV 276 Heparin Sod,Pork in 0.45% 156 NaCl 25,000 unit In 0.45 % NaCl 1 500ml.bag @ 18 UNITS/KG/HR 29.39 mls/hr IV .Q17H1M YURIDIA Rx#: [id number] Sodium Chloride 0.9% 1, 120 000 ml @ 100 mls/hr IV . Q10H STA Rx#:[id number] Oral 702 200 Output: Urine 1300 Other: Voiding Method Toilet Toilet # Voids 1 2 - Labs CBC & Chem 7: 08/27/17 05:53 08/27/17 05:53 Labs: Abnormal Lab Results - Last 24 Hours (Table) 08/27/17 08/27/17 Range/Units 05:53 05:53 WBC 11.7 H (3.8-10.6) k/uL RBC 3.36 L (3.80-5.40) m/uL Hgb 10.2 L (11.4-16.0) gm/dL Hct 30.5 L (34.0-46.0) % Neutrophils # 7.9 H (1.3-7.7) k/uL Chloride 108 H (98-107) mmol/L BUN 22 H (7-17) mg/dL Assessment and Plan Plan: Assessment: #1. Nonoliguric acute kidney injury mostly prerenal secondary to nonsteroidals. Resolved. #2. Dyspnea. Concern for pulmonary embolism. #3. Left total knee arthroplasty on 08/17/2017. #4. Benign hypertension. Controlled. Plan: Continue normal saline at 100 mL an hour. Can continue with Hyzaar for now as her blood pressure is in the systolic 140s and there is no evidence of volume depletion. Possible discharge today. She is stable to be discharged from nephrology standpoint but will need to get a basic metabolic panel checked within 3-4 days after discharge to make sure her renal function is staying stable as contrast toxicity peaks at 48-72 hours.
[2017-08-27] MEDS: ASPIRIN 81 MG PO SCH (08:46)
[2017-08-27] MEDS: SODIUM CHLORIDE 0.9% 1,000 ML IV SCH ×2 (08:46→11:57)
[2017-08-27] MEDS: GABAPENTIN 100 MG CAP PO SCH (08:47)
[2017-08-27] MEDS: FLUTICASONE 50MCG/SPRAY NASAL 16GM EA NOSTRIL SCH (08:47)
[2017-08-27] MEDS: DOCUSATE 100 MG CAP PO SCH (08:47)
[2017-08-27] MEDS: MONTELUKAST 10 MG TAB PO SCH (08:47)
--- NOTE | 2017-08-27 11:27 | ECHOF ---
Referral Reason:pe MEASUREMENTS -------- HEIGHT: 165.1 cm WEIGHT: 83.9 kg BP: 122/64 IVSd: 1.4 cm (0.6 - 1.1) LVIDd: 4.9 cm (3.9 - 5.3) LVPWd: 1.5 cm (0.6 - 1.1) IVSs: 1.8 cm LVIDs: 3.5 cm LVPWs: 1.2 cm LAESV Index (A-L): 25.95 ml/m Ao Diam: 3.6 cm (2.0 - 3.7) AV Cusp: 1.9 cm (1.5 - 2.6) LA Diam: 3.9 cm (2.7 - 3.8) MV EXCURSION: 14.924 mm (> 18.000) MV EF SLOPE: 94 mm/s (70 - 150) EPSS: 0.7 cm MV E Vldaimir: 0.61 m/s MV DecT: 233 ms MV A Vladimir: 1.02 m/s MV E/A Ratio: 0.59 RAP: 5.00 mmHg RVSP: 35.99 mmHg FINDINGS -------- Sinus rhythm. This was a technically good study. The left ventricular size is normal. There is moderate concentric left ventricular hypertrophy. O verall left ventricular systolic function is normal with, an EF between 55 - 60 %. The right ventricle is normal in size. The left atrial size is normal. Normal LA size by volume 22+/-6 ml/m2. The right atrial size is normal. The aortic valve is trileaflet, and appears structurally normal. No aortic stenosis or regurgitation. Mild mitral annular calcification present. There is trace mitral regurgitation. Mild tricuspid regurgitation present. There is mild pulmonary hypertension. The right ventricular systolic pressure, as measured by Doppler, is 35.99mmHg. Trace/mild (physiologic) pulmonic regurgitation. The aortic root size is normal. There is no pericardial effusion. CONCLUSIONS -------- 1. The left ventricular size is normal. 2. There is moderate concentric left ventricular hypertrophy. 3. Overall left ventricular systolic function is normal with, an EF between 55 - 60 %. 4. Normal LA size by volume 22+/-6 ml/m2. 5. The aortic valve is trileaflet, and appears structurally normal. No aortic stenosis or regurgitati on. 6. Mild mitral annular calcification present. 7. There is trace mitral regurgitation. 8. Mild tricuspid regurgitation present. 9. There is mild pulmonary hypertension. 10. The right ventricular systolic pressure, as measured by Doppler, is 35.99mmHg. 11. Trace/mild (physiologic) pulmonic regurgitation. 12. The aortic root size is normal. 13. There is no pericardial effusion. HEAT TREATING FURNACE TENDER: Michelle Harvey RDCS
--- NOTE | 2017-08-27 12:03 | P.PN ---
Subjective Progress Note Date: 08/27/17 Principal diagnosis: Dyspnea. This is a very pleasant 57-year-old female patient who follows with Dr. More as her primary care physician. She has a history of hypertension, hyperlipidemia, osteoarthritis. She also has a history of chronic bronchial asthma and follows with Dr. Coughlin in our office for the same. She is maintained on Advair, Singulair, Ventolin HFA. Her asthma has been well controlled. She had undergone a total left knee arthroplasty by Dr. Bal on . She had been treated with aspirin 81 mg daily. She had been home recovering quite well. On August 25 the visiting nurse was over and noted her to have a fast heartbeat. The patient had been short of breath with minimal exertion. She did have some diaphoresis and fatigue. She presented here to the emergency room for the same. Chest x-ray revealed no acute pulmonary process. D-dimer 3.79. Creatinine 1.51. Doppler of the left lower extremity revealed no DVT. VQ scan scan revealed intermediate probability for pulmonary emboli in the left upper and left lower lobes. EKG reveals sinus tachycardia. She was 97% O2 saturations on room air. She was admitted and initiated on a heparin drip. No previous history of DVT/PE, no family history, no cancer, most likely provoked by surgery. She is seen today in consultation on the selective care unit. She is awake and alert in no acute distress. She is maintaining good O2 saturations in the 90s on room air. She denies any chest pain, palpitations, lightheadedness or dizziness. No shortness of breath at rest. No hemoptysis. The patient is seen again today 08/27/2017 in follow-up on the selective care unit. She is awake and alert in no acute distress. She is breathing quite a bit easier today as compared to yesterday. Maintaining good O2 saturations in the mid 90s on room air. She is afebrile. No tachypnea. Heart rate in the 90s. CT angiogram ruled out pulmonary embolism. Few basilar atelectasis only. White count 11.7. Hemoglobin 10.2. Creatinine 0.96. Objective - Vital Signs Vital signs: Vital Signs Temp 97.5 F L 08/27/17 08:00 Pulse 96 08/27/17 11:31 Resp 18 08/27/17 08:00 BP 147/86 08/27/17 08:00 Pulse Ox 95 08/27/17 08:00 Intake & Output 08/26/17 08/27/17 08/27/17 18:59 06:59 18:59 Intake Total 978 200 240 Output Total 1300 Balance -322 200 240 Weight 85.5 kg Intake: IV 276 Heparin Sod,Pork in 0.45% 156 NaCl 25,000 unit In 0.45 % NaCl 1 500ml.bag @ 18 UNITS/KG/HR 29.39 mls/hr IV .Q17H1M YURIIDA Rx#: [id number] Sodium Chloride 0.9% 1, 120 000 ml @ 100 mls/hr IV . Q10H STA Rx#:[id number] Oral 702 200 240 Output: Urine 1300 Other: Voiding Method Toilet Toilet Toilet # Voids 1 2 - Exam GENERAL EXAM: Alert, active, comfortable in no apparent distress. HEAD: Normocephalic. EYES: Normal reaction of pupils, equal size. NOSE: Clear with pink turbinates. THROAT: No erythema or exudates. NECK: No masses, no JVD. CHEST: No chest wall deformity. LUNGS: Equal air entry with no crackles, wheeze, rhonchi or dullness. CVS: S1 and S2 normal with no audible murmur, regular rhythm. ABDOMEN: No hepatosplenomegaly, normal bowel sounds, no guarding or rigidity. SPINE: No scoliosis or deformity SKIN: No rashes CENTRAL NERVOUS SYSTEM: No focal deficits, tone is normal in all 4 extremities. EXTREMITIES: Dressing to left knee dry and intact. There is trace peripheral edema. No clubbing, no cyanosis. Peripheral pulses are intact. - Labs CBC & Chem 7: 08/27/17 05:53 08/27/17 05:53 Labs: Abnormal Lab Results - Last 24 Hours (Table) 08/27/17 08/27/17 Range/Units 05:53 05:53 WBC 11.7 H (3.8-10.6) k/uL RBC 3.36 L (3.80-5.40) m/uL Hgb 10.2 L (11.4-16.0) gm/dL Hct 30.5 L (34.0-46.0) % Neutrophils # 7.9 H (1.3-7.7) k/uL Chloride 108 H (98-107) mmol/L BUN 22 H (7-17) mg/dL Assessment and Plan Assessment: Impression: #1 Dyspnea with intermediate probability of pulmonary emboli in the left upper and lower lobes per VQ scan in a patient with a recent recent left total knee arthroplasty on 08/17/2017 with limited mobility. However, CT angiogram performed today ruled out pulmonary embolism. #2 Sinus tachycardia secondary to above, recovered. #3 Chronic bronchial asthma currently inactive and stable. #4 Hypertension. #5 Hyperlipidemia. #6 Osteoarthritis. #7 History of depression. Plan: The patient was seen and evaluated by Dr. Coughlin. CT angiogram was reviewed. There is no pulmonary embolism. No need for anticoagulants. Minimal atelectasis. Encouraged increased cough and deep breathing exercises. Continue albuterol, Singulair, Symbicort. She is cleared for discharge from the pulmonary standpoint. She will follow-up with Dr. Coughlin in our office in 1 -2 weeks' time. She is however encouraged to call sooner with any recurrence of symptoms or other questions or concerns. We'll continue to follow and make further recommendations based on her clinical status. I, the cosigning physician, performed a history & physical examination of the patient. Lungs sounds are clear. Maintaining good O2 saturations in the 90s on room air. I discussed the assessment and plan of care with my nurse practitioner, Yoselyn Landry. I attest to the above consultation as dictated by her.
--- NOTE | 2017-08-27 12:39 | P.PN ---
Subjective Progress Note Date: 08/27/17 This is a pleasant 57-year-old female with history of hypertension, hyperlipidemia, who initially presented to the hospital with symptoms of shortness of breath. She had undergone left knee surgery approximately one week ago, and states that since then she has just not been feeling well in general. Her initial d-dimer came back to be elevated and for this reason she underwent a VQ scan which showed an intermediate probability for a pulmonary embolism. She also underwent a venous duplex study which revealed no evidence of a DVT in the left leg. Subsequently patient underwent a CAT scan of the chest which was negative for pulmonary embolism. Partially visualized probable hepatic cyst an indeterminant adrenal gland lesion noted. Echocardiogram with Doppler study was performed which revealed an ejection fraction 55-60%. Patient was seen and examined today, feels well, denies any difficulty breathing , no chest discomfort. Objective - Vital Signs Vital signs: Vital Signs Temp 97.5 F L 08/27/17 08:00 Pulse 96 08/27/17 11:31 Resp 18 08/27/17 08:00 BP 147/86 08/27/17 08:00 Pulse Ox 95 08/27/17 08:00 Intake & Output 08/26/17 08/27/17 08/27/17 18:59 06:59 18:59 Intake Total 978 200 240 Output Total 1300 Balance -322 200 240 Weight 85.5 kg Intake: IV 276 Heparin Sod,Pork in 0.45% 156 NaCl 25,000 unit In 0.45 % NaCl 1 500ml.bag @ 18 UNITS/KG/HR 29.39 mls/hr IV .Q17H1M YURIDIA Rx#: [id number] Sodium Chloride 0.9% 1, 120 000 ml @ 100 mls/hr IV . Q10H STA Rx#:[id number] Oral 702 200 240 Output: Urine 1300 Other: Voiding Method Toilet Toilet Toilet # Voids 1 2 - Exam PHYSICAL EXAMINATION: HEENT: [Head is atraumatic, normocephalic. Pupils equal, round. Neck is supple. There is no elevated jugular venous pressure.] HEART EXAMINATION: [Heart S1, S2 normal. No murmur or gallop heard.] CHEST EXAMINATION:[ Lungs are clear to auscultation and precussion. No chest wall tenderness is noted on palpation or with deep breathing.] ABDOMEN: [ Soft, nontender. Bowel sounds are heard. No organomegaly noted]. EXTREMITIES:[ 2+ peripheral pulses with no evidence of peripheral edema and no calf tenderness noted]. Dressing to left knee dry and intact NEUROLOGIC [patient is awake, alert and oriented -3.] . - Labs CBC & Chem 7: 08/27/17 05:53 08/27/17 05:53 Labs: Abnormal Lab Results - Last 24 Hours (Table) 08/27/17 08/27/17 Range/Units 05:53 05:53 WBC 11.7 H (3.8-10.6) k/uL RBC 3.36 L (3.80-5.40) m/uL Hgb 10.2 L (11.4-16.0) gm/dL Hct 30.5 L (34.0-46.0) % Neutrophils # 7.9 H (1.3-7.7) k/uL Chloride 108 H (98-107) mmol/L BUN 22 H (7-17) mg/dL Assessment and Plan Plan: Assessment and plan #1 symptoms of shortness of breath, VQ scan revealed intermediate probability for pulmonary embolism, CT of the chest negative for PE #2 recent left total knee arthroplasty #3 hypertension #4 hyperlipidemia #5 history of depression #6 chronic bronchial asthma Plan Echocardiogram with Doppler study revealed normal left ventricular systolic function. From cardiology's perspective, we will follow the patient up in the office post discharge, once stable we'll recommend undergoing a stress test down the road. DNP note has been reviewed, I agree with a documented findings and plan of care. Patient was seen and examined.
[2017-08-27 15:30] VITALS: BP 138/77; PULSE 92; TEMP 97
--- NOTE | 2017-08-28 01:28 | P.DS ---
Providers Date of admission: 08/25/17 16:05 Expected date of discharge: 08/27/17 Attending physician: Marilyn Wilkins Consults: 08/25/17 16:05 Consult Physician Stat Consulting Provider: Vlad Coughlin Consult Reason/Comments: Dyspnea Do you want consulting provider notified?: Yes Consult Physician Stat Consulting Provider: Janis Burch Consult Reason/Comments: Renal failure Do you want consulting provider notified?: Yes 08/25/17 18:15 Consult Physician Stat Consulting Provider: Neil Morris Consult Reason/Comments: Dyspnea Do you want consulting provider notified?: Yes Primary care physician: Esvni More [facility] Course: Hospital course Shortness of breath likely due to COPD with mild exacerbation on admission with elevated d-dimer. VQ scan showed intermediate probability. CTA was done showed no PE. Heparin discontinued. D-dimer elevated. Duplex scan is negative for DVT Generalized weakness and poor oral intake Acute kidney injury most likely prerenal Hypertension GI and DVT prophylaxis Anxiety depression Degenerative joint disease Chronic neck pain, spinal stenosis and Shoulder pain Hepatic cyst and Arenal gland lesion. Outpatient follow-up recommended. Hospital course Patient is a 57-year-old female with a known history of hypertension, COPD and depression came to ER with complaints of difficulty breathing for the past 1 week. Patient is also complaining of cough with yellowish to brown sputum production. Also is complaining of lack of energy and weakness. Patient had left knee total arthroplasty done on July. Patient says that since then she hasn't been feeding very well. Patient has been having increase oral intake. Patient completed her steroid tapering course yesterday. Patient was taking Motrin for the pain and patient was on aspirin for DVT prophylaxis and surgery. Patient was seen by visiting nurse and was found have tachycardic. Patient was sent to Hospital for further evaluation. Patient is not on home oxygen. She was tachycardic with heart rate of 115 on admission. Lower extremities duplex scan is negative.. Creatinine increased from 0.8-1.5. Patient denied any increased left leg swelling or pain. she has no history of pulmonary embolism or DVT . she is quite short winded he doesn't quite fit to take a deep breath and she is tachycardic. Denies any headaches no neck stiffness short of breath no abdominal pain no frequency urgency dysuria. Patient follows with Dr. Coughlin in the pulmonary clinic and primary care physician is Dr. More Chest x-ray showed no acute process D-dimer 3.79 08/26/2017 Patient says that her shortness of breath is better today. Heparin has been discontinued and patient was started on oral anticoagulants. No complaints of chest pain. 2-D levocardia was ordered. Troponin is not elevated. Cardiology and pulmonary is following. Patient is also getting physical therapy 08/27/2017 Patient denied any chest pain or shortness of breath. CTA chest was done to rule out pulmonary embolism which showed negative for PE. Heparin and anticoagulation has been discontinued. Patient was also found have hepatic cystic lesion and adrenal gland lesion which patient thinks she was told before. Patient was recommended to follow with primary care physician to compared to previous study. Otherwise patient denied any new complaints today tolerating oral diet. Stable to be discharged home. PHYSICAL EXAMINATION: Patient is lying in the bed comfortably, no acute distress, awake alert and oriented.. HEENT: Normocephalic. Neck is supple. Pupils reactive. Nostrils clear. Oral cavity is moist. Ears reveal no drainage. Neck reveals no JVD, carotid bruits, or thyromegaly. CHEST EXAMINATION: Trachea is central. Symmetrical expansion. Lung mayer clear to auscultation and percussion. CARDIAC: Normal S1, S2 with no gallops. No murmurs ABDOMEN: Soft. Bowel sounds normal. No organomegaly. No abdominal bruits. Extremities: reveal no edema. No clubbing or cyanosis Neurologically awake, alert, oriented x3 with well-coordinated movements. No focal deficits noted Skin: No rash or skin lesions. Psychiatric: Coperative. Nonsuicidal Musculoskeletal: No joint swelling or deformity. Normal range of motion. Vital Signs - 24 hr 08/27/17 08/27/17 08/27/17 04:00 08:00 08:14 Temperature 97.0 F L 97.5 F L Pulse Rate 95 Pulse Rate [ Pulse Oximetery ] Pulse Rate [ 78 103 H Right Brachial] Respiratory 18 18 Rate Blood Pressure 147/97 147/86 [Right Arm] O2 Sat by Pulse 97 95 Oximetry 08/27/17 08/27/17 08/27/17 08:24 11:13 11:31 Temperature Pulse Rate 96 94 96 Pulse Rate [ Pulse Oximetery ] Pulse Rate [ Right Brachial] Respiratory Rate Blood Pressure [Right Arm] O2 Sat by Pulse Oximetry 08/27/17 12:00 Temperature 97.0 F L Pulse Rate Pulse Rate [ 92 Pulse Oximetery ] Pulse Rate [ Right Brachial] Respiratory 18 Rate Blood Pressure 138/77 [Right Arm] O2 Sat by Pulse 95 Oximetry Patient Condition at Discharge: Good Plan - Discharge Summary Discharge Rx Participant: Yes New Discharge Prescriptions: Continue Citalopram Hydrobromide [CeleXA] 20 mg PO HS Montelukast Sodium [Singulair] 10 mg PO DAILY Fluticasone/Salmeterol [Advair 250-50 Diskus] 1 puff INHALATION RT-DAILY Albuterol Inhaler [Ventolin Hfa Inhaler] 2 puff INHALATION RT-Q4H PRN PRN Reason: Shortness Of Breath Multivitamins, Thera [Multivitamin (formulary)] 1 tab PO HS Acyclovir [Zovirax] 400 mg PO DAILY PRN PRN Reason: virus amLODIPine [Norvasc] 2.5 mg PO HS Atorvastatin Calcium [Lipitor] 10 mg PO HS Cyclobenzaprine [Flexeril] 5 mg PO HS Fluticasone Nasal [place] [Flonase Nasal [place]] 1 spray EA NOSTRIL DAILY Losartan/Hydrochlorothiazide [Hyzaar 100-25 Tablet] 1 tab PO HS [place]-3 Fatty Acids [[place]-3] 1,000 mg PO HS rOPINIRole HCL [Requip] 0.25 mg PO HS Aspirin EC [Ecotrin Low Dose] 81 mg PO BID Gabapentin [Neurontin] 100 mg PO BID Meloxicam [Mobic] 7.5 mg PO BID oxyCODONE-APAP 5-325MG [Percocet 5-325 mg] 1 tab PO Q4H PRN PRN Reason: Pain Discharge Medication List Citalopram Hydrobromide [CeleXA] 20 mg PO HS 12/20/13 [History] Acyclovir [Zovirax] 400 mg PO DAILY PRN 12/06/15 [History] Albuterol Inhaler [Ventolin Hfa Inhaler] 2 puff INHALATION RT-Q4H PRN 12/06/15 [ History] Fluticasone/Salmeterol [Advair 250-50 Diskus] 1 puff INHALATION RT-DAILY [History] Montelukast Sodium [Singulair] 10 mg PO DAILY 12/06/15 [History] Multivitamins, Thera [Multivitamin (formulary)] 1 tab PO HS 12/06/15 [History] Aspirin EC [Ecotrin Low Dose] 81 mg PO BID 08/25/17 [History] Atorvastatin Calcium [Lipitor] 10 mg PO HS 08/25/17 [History] Cyclobenzaprine [Flexeril] 5 mg PO HS 08/25/17 [History] Fluticasone Nasal [place] [Flonase Nasal [place]] 1 spray EA NOSTRIL DAILY 08/25/17 [History] Gabapentin [Neurontin] 100 mg PO BID 08/25/17 [History] Losartan/Hydrochlorothiazide [Hyzaar 100-25 Tablet] 1 tab PO HS 08/25/17 [ History] Meloxicam [Mobic] 7.5 mg PO BID 08/25/17 [History] [place]-3 Fatty Acids [[place]-3] 1,000 mg PO HS 08/25/17 [History] amLODIPine [Norvasc] 2.5 mg PO HS 08/25/17 [History] oxyCODONE-APAP 5-325MG [Percocet 5-325 mg] 1 tab PO Q4H PRN 08/25/17 [History] rOPINIRole HCL [Requip] 0.25 mg PO HS 08/25/17 [History] Follow up Appointment(s)/Referral(s): Esvin More DO [Primary Care Provider] - 09/15/17 2:20 pm (Please call office during the week to check if cancellations to try to get in sooner, no earlier appointments available at this time.) Patient Instructions/Handouts: Dyspnea (GEN), Tachycardia (GEN) Activity/Diet/Wound Care/Special Instructions: Home Care - [place] [facility] Nurse - [phone] Discharge Disposition: HOME SELF-CARE
== END 2017-08-27 17:59 | disposition home health service (06) | DRG 191 ==
LOC: EC 11:49 → 6SEL 16:05
PROVIDERS: ADMIT Hospitalist; ATTEND Hospitalist
DX: J44.1 Chronic obstructive pulmonary disease with (acute) exacerbation (principal); J98.11 Atelectasis; N17.9 Acute kidney failure, unspecified; E27.8 Other specified disorders of adrenal gland; M48.02 Spinal stenosis, cervical region; E78.5 Hyperlipidemia, unspecified; G89.29 Other chronic pain; I10 Essential (primary) hypertension; M19.90 Unspecified osteoarthritis, unspecified site; R79.1 Abnormal coagulation profile; T39.395A Adverse effect of other nonsteroidal anti-inflammatory drugs [NSAID], initial encounter; F32.9 Major depressive disorder, single episode, unspecified; I83.90 Asymptomatic varicose veins of unspecified lower extremity; K59.00 Constipation, unspecified; F41.9 Anxiety disorder, unspecified; H91.90 Unspecified hearing loss, unspecified ear; K76.89 Other specified diseases of liver; M54.12 Radiculopathy, cervical region; M25.519 Pain in unspecified shoulder; R00.0 Tachycardia, unspecified; Z79.82 Long term (current) use of aspirin; Z79.899 Other long term (current) drug therapy; Z96.652 Presence of left artificial knee joint; Z96.642 Presence of left artificial hip joint; Z87.442 Personal history of urinary calculi; Z85.820 Personal history of malignant melanoma of skin; Z98.42 Cataract extraction status, left eye; Z98.41 Cataract extraction status, right eye; Z96.1 Presence of intraocular lens; Z98.51 Tubal ligation status; Z82.49 Family history of ischemic heart disease and other diseases of the circulatory system; Z80.9 Family history of malignant neoplasm, unspecified; Z82.3 Family history of stroke
CPT/HCPCS: 36415; 71046; 71275; 78582; 80048; 80053; 81003; 82272; 82550; 82553; 84484; 85025; 85379; 85610; 85730; 93005; 93306; 94640; 94644; 94760; 96361; 96374; 99285

== ENCOUNTER → 2018-08-24 | Outpatient (CLI) | payer MEDICARE ==
[2018-08-24 19:35] LABS: Albumin 4.7 g/dL (3.80-4.90); Albumin/Globulin Ratio 2.61 (1.60-3.17); Anion Gap 13.3 mmol/L (4.00-12.00); Calcium 9.8 mg/dL (8.7-10.3); Carbon Dioxide 23.7 mmol/L (21.6-31.8); Globulin 1.8 g/dL (1.6-3.3); LDL Cholesterol,Calculated 104.8 mg/dL (0.0-131.0); Total Bilirubin 0.7 mg/dL (0.2-1.2); Total Protein 6.5 g/dL (6.2-8.2); VLDL Calculation 55.2 mg/dL (5.00-40.00)
[2018-08-24 19:43] LABS: T4, Free (Free Thyroxine) 1.3 ng/dL (0.80-1.80)
== END ==
LOC: LABWHC1 12:23
PROVIDERS: ATTEND Family Medicine
DX: I10 Essential (primary) hypertension (principal); E78.5 Hyperlipidemia, unspecified
CPT/HCPCS: 36415; 80053; 80061; 82375; 84439; 84443

== ENCOUNTER → 2018-12-14 | Outpatient (CLI) | payer MEDICARE ==
--- NOTE | 2018-12-15 12:16 | MM ---
Reason for exam: screening (asymptomatic). Last mammogram was performed 1 year and 11 months ago. History: Patient is postmenopausal and has history of high-risk lesion on a previous biopsy at age 52. Family history of breast cancer in maternal aunt, breast cancer in maternal aunt at age 60, and breast cancer in mother at age 71. High risk u/S right breast localization of the right breast, March 10, 2012. High risk US RT VAD breast biopsy of the right breast, February 27, 2012. Benign left mammotome panel of the left breast, October 04, 2008. Took hormonal contraceptives for 9 years beginning at age 19. Taking estrogen for 2 months. Taking progesterone for 2 months. Physical Findings: A clinical breast exam by your physician is recommended on an annual basis and results should be correlated with mammographic findings. MG 3D Screening Mammo W/Cad Bilateral CC and MLO view(s) were taken. Prior study comparison: January 29, 2017, bilateral MG 3d diag mammo w/cad ELISABET. May 29, 2015, bilateral MG 3d screening mammo w/cad. The breast tissue is heterogeneously dense. This may lower the sensitivity of mammography. There are benign appearing round calcifications bilaterally. Previous mammotome biopsy in the left breast. There is chronic nodularity in the right breast. There is no discrete abnormality. ASSESSMENT: Benign, BI-RAD 2 RECOMMENDATION: Routine screening mammogram of both breasts in 1 year.
== END | disposition home or self-care (01) ==
LOC: RADMAMWWP 09:56
PROVIDERS: ATTEND Obstetrics & Gynecology
DX: Z12.31 Encounter for screening mammogram for malignant neoplasm of breast (principal); Z78.0 Asymptomatic menopausal state; Z80.3 Family history of malignant neoplasm of breast
CPT/HCPCS: 77063; 77067

== ENCOUNTER → 2019-02-08 | Outpatient (CLI) | payer MEDICARE ==
--- NOTE | 2019-02-08 16:02 | US ---
EXAMINATION TYPE: US kidneys/renal and bladder DATE OF EXAM: 02/08/2019 COMPARISON: CT 2016 CLINICAL HISTORY: N20.0 calculus of kidney. Hx of stones. EXAM MEASUREMENTS: Right Kidney: 10.6 x 4.2 x 4.1 cm Left Kidney: 11.1 x 4.8 x 4.1 cm Right Kidney: No hydronephrosis or masses seen Left Kidney: Cystic area lower pole 2.6 x 2.4 x 2.7 cm. Bladder: Anechoic Bilateral Jets seen: No There is no evidence for hydronephrosis at this point in time. No nephrolithiasis is seen. The urin gem bladder is anechoic. IMPRESSION: Stable simple appearing 2.6 cm cyst left kidney mid to lower pole level. No definitive sh adowing nephrolithiasis or hydronephrosis.
--- NOTE | 2019-02-08 16:56 | XR ---
Abdomen HISTORY: Calculus of kidney Frontal view of the abdomen on 2 images and correlated to prior exam dated 12/17/2015 Postop changes are noted to the left hip and show stable appearance. Probable phleboliths present in the left hemipelvis. Degenerative disc changes are present in the visualized spine. No evident pneumo peritoneum or bowel obstruction. No evident pathologic calcification. IMPRESSION: Nonobstructive bowel gas pattern.
== END | disposition home or self-care (01) ==
LOC: RADUSWWP 14:53
PROVIDERS: ATTEND Urology
DX: N28.1 Cyst of kidney, acquired (principal); N20.0 Calculus of kidney; N30.20 Other chronic cystitis without hematuria
CPT/HCPCS: 74018; 76770; 87086

== ENCOUNTER → 2019-04-01 | Outpatient (CLI) | payer MEDICARE ==
[2019-04-01 12:30] LABS: HCT 34.7 % (34.0-46.0); MCH 31.8 pg (25.0-35.0); MCHC 34.7 g/dL (31.0-37.0); MCV 91.5 fL (80.0-100.0); Mean Platelet Volume 5.9; Platelet Count 329 k/uL (150-450); RBC 3.79 m/uL (3.80-5.40); RDW 13.7 % (11.5-15.5); WBC 5.9 k/uL (3.8-10.6)
[2019-04-01 13:29] LABS: Eosinophils # (M) 0.06 k/uL (0-0.7); Monocytes # (M) 0.41 k/uL (0-1.0); Neutrophils % (M) 53 %; Nucleated Red Blood Cells 0 /100 WBC (0-0); Total Cells Counted 100
[2019-04-01 20:21] LABS: Ragweed,Common IgE <0.10 kU/L; Red Top (Bentgrass) IgE 0.17 kU/L
[2019-04-01 20:22] LABS: Cat Epith & Dander IgE <0.10 kU/L; Dermato. farinae IgE <0.10 kU/L
[2019-04-01 20:23] LABS: Cockroach IgE <0.10 kU/L; Dog Dander IgE <0.10 kU/L
[2019-04-01 20:24] LABS: Alternaria alternata IgE <0.10 kU/L; Aspergillus fumagatus IgE <0.10 kU/L; Cladosporian herbarum IgE <0.10 kU/L
[2019-04-01 20:25] LABS: Maple (Box Elder) IgE <0.10 kU/L
[2019-04-01 21:08] LABS: Immunoglobulin E 4.53 IU/mL (0.00-114.00)
[2019-04-01 21:46] LABS: Birch IgE <0.10 kU/L; Elm IgE <0.10 kU/L; Oak IgE <0.10 kU/L
[2019-04-04 14:38] LABS: Total Eosinophil Count 125 #EOS/uL (150-300)
== END ==
LOC: LABWHC1 11:22
PROVIDERS: ATTEND Internal Medicine
DX: J45.909 Unspecified asthma, uncomplicated (principal); J30.9 Allergic rhinitis, unspecified
CPT/HCPCS: 36415; 82785; 85008; 85025; 86003

== ENCOUNTER → 2019-05-02 | Outpatient (CLI) | payer MEDICARE ==
--- NOTE | 2019-05-02 15:16 | CT ---
EXAMINATION TYPE: CT sinus wo con DATE OF EXAM: 05/02/2019 COMPARISON: None HISTORY: Chronic sinusitis, dizziness, pain, discharge RT nostrile. CT DLP: 526.40 mGycm CONTRAST: 0 mL of Isovue 300 The paranasal sinuses are examined in the axial plane at 2 mm thick sections. Reconstructed images i n the coronal plane were obtained. There is dental amalgam scatter artifact There is opacification of the right maxillary sinus. Few tiny amounts of air are present centrally. S ome inspissated mucus may be present. There is opacification of the left ethmoid air cells The sphe noid sinuses are clear. The frontal sinuses are clear. The septum is evaluated. There is septal deviation to the right. There is been prior uncinectomy. Left ostiomeatal unit is patent IMPRESSIONS: 1. Opacification of the right maxillary sinus and ethmoid air cells. Correlate for acute sinusitis.
== END | disposition home or self-care (01) ==
LOC: RADCTMAIN 14:40
PROVIDERS: ATTEND Internal Medicine
DX: J32.0 Chronic maxillary sinusitis (principal)
CPT/HCPCS: 70486

== ENCOUNTER → 2019-05-14 | Outpatient (CLI) | payer MEDICARE ==
--- NOTE | 2019-05-14 13:35 | CT ---
EXAMINATION TYPE: CT soft tissue neck w con DATE OF EXAM: 05/14/2019 8:05 AM COMPARISON: None HISTORY: Lt supraclavicular mass CT DLP: 398.9 mGycm Automated exposure control for dose reduction was used. CONTRAST: CT scan of the neck is performed following with IV Contrast, patient injected with 100 mL of Isovue 3 00. Axial images are obtained, coronal and sagittal reformatted images are reviewed. Overlying marke r is placed at the site of patient's clinical abnormality FINDINGS: Inflammatory changes present in the right maxillary sinus. There is associated calcificatio n suggesting fungal sinusitis. Inflammatory change also noted in the ethmoid air cells. Airway: No gross abnormality seen. Parotid/submandibular glands: No gross abnormality seen. Carotid/Vascular Structures: Patent and there are 3 super aortic branch vessels from the transverse a balbir. Left jugular vein is dominant. Osseous Structures: Postop changes are noted status post anterior cervical fusion and discectomy at C 5-C7, there is some streak artifact present. Other: At the site of patient's clinical abnormality there is a BB present. Only fat density is prese nt at this level with some underlying vasculature which appears normal. IMPRESSION: Findings of patient's palpable abnormality may represent lipoma, correlate. Probable fun gal sinusitis right maxillary sinus, ethmoid air cells
== END | disposition home or self-care (01) ==
LOC: RADCTMAIN 07:31
PROVIDERS: ATTEND Otolaryngology
DX: R22.1 Localized swelling, mass and lump, neck (principal)
CPT/HCPCS: 70491; Q9967

== ENCOUNTER → 2021-02-04 | Outpatient (CLI) | payer MEDICARE ==
--- NOTE | 2021-02-06 08:38 | MM ---
Reason for exam: screening (asymptomatic). Last mammogram was performed 2 years and 2 months ago. History: Patient is postmenopausal, has history of other cancer at age 57, and has history of high-risk lesion on a previous biopsy at age 52. Family history of breast cancer in maternal aunt, breast cancer in maternal aunt at age 60, and breast cancer in mother at age 71. High risk u/S right breast localization of the right breast, March 10, 2012. High risk US RT VAD breast biopsy of the right breast, February 27, 2012. Benign left mammotome panel of the left breast, October 04, 2008. Took hormonal contraceptives for 9 years beginning at age 19. Took estrogen for 2 months. Took progesterone for 2 months. Physical Findings: A clinical breast exam by your physician is recommended on an annual basis and results should be correlated with mammographic findings. MG 3D Screening Mammo W/Cad Bilateral CC and MLO view(s) were taken. Prior study comparison: December 14, 2018, bilateral MG 3d screening mammo w/cad. January 29, 2017, bilateral MG 3d diag mammo w/cad ELISABET. February 18, 2016, right breast US breast limited RT. The breast tissue is heterogeneously dense. This may lower the sensitivity of mammography. Multiple new and more defined areas of focal asymmetry lateral left breast. Increased nodularity at 9 o'clock right breast. ASSESSMENT: Incomplete: need additional imaging evaluation, BI-RAD 0 RECOMMENDATION: Special view mammogram of both breasts. If lesion persists on supplemental views, image directed ultrasound is recommended. [facility] will attempt to contact patient to return for supplemental views and ultrasound if indicated.
== END | disposition home or self-care (01) ==
LOC: RADMAMWWP 16:37
PROVIDERS: ATTEND Obstetrics & Gynecology
DX: Z12.31 Encounter for screening mammogram for malignant neoplasm of breast (principal); Z78.0 Asymptomatic menopausal state; Z80.3 Family history of malignant neoplasm of breast
CPT/HCPCS: 77063; 77067

== ENCOUNTER → 2021-02-08 | Outpatient (CLI) | payer MEDICARE ==
--- NOTE | 2021-02-08 11:32 | US ---
EXAMINATION TYPE: US thyroid st tissue head/neck DATE OF EXAM: 02/08/2021 COMPARISON: NONE CLINICAL HISTORY: D17.0 Lipoma,R22.1 Mass. lump left neck/subclavicular area Scanned within patient's area of concern, left neck/clavicle area, isoechoic area noted = 3.6 x 0.8 x 2.8cm - probable lipoma IMPRESSION: 3.6 cm isoechoic area of nodularity could be correlated with CAT scan to assess for a li madison. Other etiologies not excluded.
== END | disposition home or self-care (01) ==
LOC: RADUSWWP 08:58
PROVIDERS: ATTEND Surgery
DX: D17.0 Benign lipomatous neoplasm of skin and subcutaneous tissue of head, face and neck (principal); R22.1 Localized swelling, mass and lump, neck
CPT/HCPCS: 76536

== ENCOUNTER → 2021-02-08 | Outpatient (CLI) | payer MEDICARE ==
--- NOTE | 2021-02-08 13:00 | MM ---
Reason for exam: additional evaluation requested from abnormal screening. Last mammogram was performed less than 1 month ago. History: Patient is postmenopausal, has history of other cancer at age 57, and has history of high-risk lesion on a previous biopsy at age 52. Family history of breast cancer in mother at age 55 and breast cancer in maternal aunt at age 60. High risk u/S right breast localization of the right breast, March 10, 2012. High risk US RT VAD breast biopsy of the right breast, February 27, 2012. Benign left mammotome panel of the left breast, October 04, 2008. Took hormonal contraceptives for 9 years beginning at age 19. Took estrogen for 2 months. Took progesterone for 2 months. Physical Findings: Nurse did not find any significant physical abnormalities on exam. MG 3D Work Up W/Cad ELISABET Bilateral spot compression MLO and LM view(s) were taken. CC, CCRM, and CCRL view(s) were taken of the right breast. Spot compression CC view(s) were taken of the left breast. Prior study comparison: February 04, 2021, bilateral MG 3d screening mammo w/cad. December 14, 2018, bilateral MG 3d screening mammo w/cad. Finding: There are less than 10 mm masses in both breasts. These results were verbally communicated with the patient and result sheet given to the patient on 02/08/21. ASSESSMENT: Incomplete: need additional imaging evaluation, BI-RAD 0 RECOMMENDATION: Ultrasound of both breasts.
--- NOTE | 2021-02-08 13:03 | USB ---
Reason for exam: additional evaluation requested from abnormal screening. History: Patient is postmenopausal, has history of other cancer at age 57, and has history of high-risk lesion on a previous biopsy at age 52. Family history of breast cancer in mother at age 55 and breast cancer in maternal aunt at age 60. High risk u/S right breast localization of the right breast, March 10, 2012. High risk US RT VAD breast biopsy of the right breast, February 27, 2012. Benign left mammotome panel of the left breast, October 04, 2008. Took hormonal contraceptives for 9 years beginning at age 19. Took estrogen for 2 months. Took progesterone for 2 months. US Breast Workup ELISABET Right complete breast ultrasound includes all four quadrants, the retroareolar region and axilla. Finding demonstrates a 0.5 x 0.3 x 0.6cm cystic cluster at 1 o'clock and a 0.6 x 0.3 x 0.5cm cystic lesion at 8 o'clock. Left limited breast ultrasound including focal area of concern, retroareolar and axilla demonstrates a 0.4 x 0.3 x 0.5cm lesion too small to characterize at 3 o'clock, a 0.5 x 0.3 x 0.4cm lesion too small to characterize at 5 o'clock, a 1.0 x 0.6 x 0.6cm mixed lesion at 5 o'clock and a 0.7 x 0.4 x 0.6cm mixed lesion at 6 o'clock. These results were verbally communicated with the patient and result sheet given to the patient on 02/08/21. ASSESSMENT: Suspicious, BI-RAD 4 RECOMMENDATION: Ultrasound core biopsy of the left breast. Called Dr. Ignacio's office with mammographic findings and has scheduled an appointment for the patient for 02/28/21 at 8:[address] Fernando. Biopsy scheduled for 02/20/21 at 10:30. PRELIMINARY REPORT CALLED AND FAXED TO DR. FERNANDO ON 02/08/21.
== END ==
LOC: RADMAMWWP 09:01
PROVIDERS: ATTEND Obstetrics & Gynecology
DX: R92.8 Other abnormal and inconclusive findings on diagnostic imaging of breast (principal)
CPT/HCPCS: 77066; 76641; G0279; 77062

== ENCOUNTER → 2021-02-20 | Day surgery (SDC) | payer MEDICARE ==
[2021-02-20 09:48] VITALS: RESP 16
[2021-02-20 10:52] VITALS: BP 128/74; PULSE 65; TEMP 98.6
--- NOTE | 2021-02-20 11:02 | USB ---
EXAMINATION TYPE: US biopsy breast VAD LT, MG diagnostic mammo LT wo CAD DATE OF EXAM: 02/20/2021 CLINICAL HISTORY: R92.8 Abn mammo. TECHNIQUE: Ultrasound guided core biopsy of left retroareolar breast. COMPARISON: NONE FINDINGS: The procedure of ultrasound guided core biopsy was explained to the patient. Benefits, alternatives, and risks were discussed. An informed consent was then obtained. The patient was placed in supine positioning for imaging and for the procedure. The overlying skin was prepped and draped in usual sterile fashion. Lidocaine buffered with bicarbonate was used as anesthetic into the skin and subcutaneous tissue up to area of concern in the left retroareolar breast. A yohan was made with surgical scalpel. Under ultrasound guidance, a 12-gauge vacuum assisted biopsy gun device was used to obtain 3 core samples. Following this, a biopsy clip was left in lesion. Postprocedural mammogram demonstrates appropriate clip placement. The patient tolerated the procedure well without any immediate complication. The patient was kept in the radiology department for short stay after the procedure and then discharged home in stable condition. IMPRESSION: Successful, uncomplicated ultrasound guided core biopsy of area of concern in the left retroareolar breast, full pathology results to follow. Pathology Results: Benign LEFT BREAST, POSTERIOR NIPPLE, ULTRASOUND GUIDED CORE BIOPSY: Fibroadipose tissue with fibrosis, cyst wall and blood. Negative for neoplasm. Recommendation Follow up mammogram of the left breast in 6 months. COLIN
== END ==
LOC: RADUSWWP 09:30
PROVIDERS: ATTEND Surgery
DX: N60.32 Fibrosclerosis of left breast (principal); N60.02 Solitary cyst of left breast; R92.8 Other abnormal and inconclusive findings on diagnostic imaging of breast
CPT/HCPCS: 19083; 88305; 77065; A4648; J2001

== ENCOUNTER → 2021-08-12 | Outpatient (CLI) | payer MEDICARE ==
--- NOTE | 2021-08-14 12:13 | MM ---
Reason for exam: follow-up at short interval from prior study. Last mammogram was performed 6 months ago. History: Patient is postmenopausal, has history of other cancer at age 57, and has history of high-risk lesion on a previous biopsy at age 52. Family history of breast cancer in mother at age 55 and breast cancer in maternal aunt at age 60. Benign US biopsy breast VAD LT of the left breast, February 20, 2021. High risk u/S right breast localization of the right breast, March 10, 2012. High risk US RT VAD breast biopsy of the right breast, February 27, 2012. Benign left mammotome panel of the left breast, October 04, 2008. Took hormonal contraceptives for 9 years beginning at age 19. Took estrogen for 6 months. Took progesterone for 6 months. Physical Findings: A clinical breast exam by your physician is recommended on an annual basis and results should be correlated with mammographic findings. MG 3D Diag Mammo W/Cad ELISABET Bilateral CC and MLO view(s) were taken. Prior study comparison: February 20, 2021, left breast MG diagnostic mammo LT wo CAD. February 08, 2021, bilateral MG 3d work up w/cad ELISABET. There are scattered fibroglandular densities. Previous mammotome biopsy in the left breast x 2. There is chronic nodularity in the right breast. Nodularity lateral and central left breast is unchanged for 6 months. ASSESSMENT: Probably benign, BI-RAD 3 RECOMMENDATION: Follow-up diagnostic mammogram of the left breast in 6 months.
== END | disposition home or self-care (01) ==
LOC: RADMAMWWP 10:29
PROVIDERS: ATTEND Surgery
DX: R92.8 Other abnormal and inconclusive findings on diagnostic imaging of breast (principal); Z78.0 Asymptomatic menopausal state; Z80.3 Family history of malignant neoplasm of breast
CPT/HCPCS: 77066; G0279; 77062

== ENCOUNTER → 2021-09-06 | Outpatient (CLI) | payer MEDICARE ==
[2021-09-06 18:29] LABS: HGB 13.7 g/dL (12.0-15.0); MCH 30.5 pg (27.0-32.0); MCHC 31.9 g/dL (32.0-37.0); MCV 95.8 fL (80.0-97.0); Mean Platelet Volume 9.8 fL (9.5-12.2); NRBC Per 100 WBC 0 /100 WBCS (0.0-0.0); Platelet Count 312 X 10*3/uL (140-440); RBC 4.49 X 10*6/uL (4.10-5.20); RDW 13.5 % (11.5-14.5); WBC 7.61 X 10*3/uL (4.50-10.00)
[2021-09-06 18:38] LABS: African American GFR (CKD) 70.1 (60.0-200.0); Anion Gap 15.1 mmol/L (10.00-18.00); BUN/Creat Ratio 16.73 Ratio (12.00-20.00); Blood Urea Nitrogen 16.9 mg/dL (9.0-27.0); Carbon Dioxide 21.3 mmol/L (20.0-27.5); HDL Cholesterol 37.5 mg/dL (40.00-60.00); Non-African American GFR(CKD) 60.5 (60.0-200.0); Potassium 3.6 mmol/L (3.5-5.5)
[2021-09-06 18:50] LABS: Chol/HDL Ratio 7.39 Ratio
== END | disposition home or self-care (01) ==
LOC: LABWHC1 09:18
PROVIDERS: ATTEND Nurse Practitioner Family
DX: E78.2 Mixed hyperlipidemia (principal)
CPT/HCPCS: 36415; 80048; 80061; 83721; 84450; 84460; 85027

== ENCOUNTER 2021-10-30 09:11 | Day surgery (SDC) | payer MEDICARE ==
[2021-10-29 10:40] VITALS: BMI 30.4
[~2021-10-30 09:11] MED LIST: LACTATED RINGERS 1,000 ML IV SCH; LIDOCAINE 1% (10MG/ML) FOR IV START INTRADERMA PRN
[2021-10-30 10:02] VITALS: RESP 16
[2021-10-30] MEDS ORDERED: PROPOFOL 10 MG/ML 20 ML VIAL IV ONE (11:00)
[2021-10-30] MEDS ORDERED: LIDOCAINE 2% INJ 20 MG/ML (2 ML VIAL) ONE (11:00)
--- NOTE | 2021-10-30 11:09 | P.PCN ---
Date of Procedure: 10/30/21 Procedure(s) Performed: BRIEF HISTORY: Patient is a 61-year-old, pleasant, white female scheduled for an upper endoscopy as a part of evaluation of intermittent dysphagia to liquids for the last 3 months duration.. PROCEDURE PERFORMED: Esophagogastroduodenoscopy with biopsy. PREOPERATIVE DIAGNOSIS: Intermittent dysphagia to liquids for few months duration. IV sedation per anesthesia. PROCEDURE: After informed consent was obtained, the patient was brought into the endoscopy unit. IV sedation was administered by Anesthesia under continuous monitoring. Initially the Olympus GIF-140 video endoscope was inserted into the mouth. Esophagus intubated without any difficulty. It was gradually advanced into the stomach and duodenum and carefully examined. The bulb and the second part of the duodenum appeared normal. The scope at this time was withdrawn to the stomach, adequately insufflated with air, and upon careful examination, mucosa of the antrum, scattered erosions and biopsies were done from this area. body, cardia and the fundus appeared normal. The scope was then withdrawn into the esophagus. The GE junction was located at 39 cm from the incisors. The esophagus appeared normal. There were no erosions or ulcerations seen, and no evidence of esophageal stricture. Biopsies were done from midesophagus distal esophagus and the patient tolerated the procedure well. IMPRESSION: 1. Normal-appearing esophagus with no evidence of esophagitis or esophageal stricture.. 2. Antral erosive gastritis. RECOMMENDATIONS: The findings of this examination were discussed with the patient as well as her family. She was advised to follow with the biopsy results. In the meantime she'll continue her medications and follow antireflux measures..
[2021-10-30 11:33] VITALS: BP 137/86; PULSE 60
== END 2021-10-30 12:07 | disposition home or self-care (01) ==
LOC: ORWHC2ENDO 09:11
PROVIDERS: ATTEND Internal Medicine Gastroenterology
DX: K29.50 Unspecified chronic gastritis without bleeding (principal)
CPT/HCPCS: 43239; 88305; J2704; J2001

== ENCOUNTER → 2021-12-16 | Outpatient (CLI) | payer MEDICARE ==
[2021-12-16 17:50] LABS: ALT 39 U/L (8-44); AST 40 U/L (13-35); Chol/HDL Ratio 4.78 Ratio; LDL Cholesterol,Calculated 66.6 mg/dL (0.0-131.0)
== END | disposition home or self-care (01) ==
LOC: LABWHC1 12:39
PROVIDERS: ATTEND Internal Medicine Interventional Cardiology
DX: E78.2 Mixed hyperlipidemia (principal)
CPT/HCPCS: 36415; 80061; 84450; 84460

== ENCOUNTER → 2021-12-31 | Outpatient (CLI) | payer MEDICARE ==
[2021-12-31 14:40] LABS: HCT 38.3 % (37.2-46.3); HGB 12.6 g/dL (12.0-15.0); MCH 30.2 pg (27.0-32.0); MCHC 32.9 g/dL (32.0-37.0); MCV 91.8 fL (80.0-97.0); Mean Platelet Volume 9.8 fL (9.5-12.2); NRBC Per 100 WBC 0 /100 WBCS (0.0-0.0); Platelet Count 265 X 10*3/uL (140-440); RBC 4.17 X 10*6/uL (4.10-5.20); RDW 13.2 % (11.5-14.5); WBC 6.49 X 10*3/uL (4.50-10.00)
[2021-12-31 14:48] LABS: Potassium 3.6 mmol/L (3.5-5.5)
[2021-12-31 14:49] LABS: African American GFR (CKD) 63.2 (60.0-200.0); Blood Urea Nitrogen 21.9 mg/dL (9.0-27.0); Non-African American GFR(CKD) 54.5 (60.0-200.0)
== END | disposition home or self-care (01) ==
LOC: LABPAT 10:47
PROVIDERS: ATTEND Internal Medicine Interventional Cardiology
DX: Z01.812 Encounter for preprocedural laboratory examination (principal); R07.9 Chest pain, unspecified
CPT/HCPCS: 80051; 82565; 84520; 85027

== ENCOUNTER 2022-01-02 06:20 | Day surgery (SDC) | payer MEDICARE ==
[~2022-01-02 06:20] MED LIST changes: +ALPRAZolam 0.25 MG TAB PO PRN; +ALPRAZolam 0.5 MG TAB PO PRN; +ASPIRIN 325 MG TAB PO STA; +ATORVASTATIN 80 MG TAB PO STA; +HEPARIN SODIUM,PORCINE 10,000 UNIT in SODIUM CHLORIDE 0.9% 1,000 ML IRRIGATION PRN; +HEPARIN SODIUM,PORCINE 2,500 UNIT in SODIUM CHLORIDE 0.9% 250 ML IRRIGATION PRN; -LACTATED RINGERS 1,000 ML IV SCH; -LIDOCAINE 1% (10MG/ML) FOR IV START INTRADERMA PRN; +NITROGLYCERIN SL TABS 0.4 MG TAB SUBLINGUAL PRN; +SODIUM CHLORIDE 0.9% 1,000 ML in EMPTY BAG 1 BAG IV SCH
[2022-01-02] MEDS ORDERED: SODIUM CHLORIDE 0.9% 1,000 ML IV ONE (06:33)
[2022-01-02 06:46] VITALS: RESP 16; TEMP 98.8
[2022-01-02] MEDS ORDERED: VERAPAMIL 2.5 MG/ML 2 ML AMP ONE (07:16)
[2022-01-02] MEDS ORDERED: HEPARIN SODIUM 1,000 UN/ML (10ML VL) ONE (07:36)
[2022-01-02] MEDS ORDERED: MIDAZOLAM 2 MG/2 ML VIAL IV ONE (07:45)
[2022-01-02] MEDS ORDERED: LIDOCAINE 1% INJ 10MG/ML (5 ML VIAL-PF) SQ ONE (07:45)
[2022-01-02] MEDS ORDERED: VERAPAMIL SYRINGE (5 MG/10 ML) INTRAARTER ONE (07:45)
[2022-01-02] MEDS ORDERED: HEPARIN SODIUM 1,000 UN/ML (10ML VL) IV ONE (07:49)
[2022-01-02] MEDS ORDERED: IOPAMIDOL-370 125ML BTL INJ ONE (07:54)
[2022-01-02] MEDS ORDERED: RX INFO: IV CONTRAST WAS GIVEN 1 EACH MISC MISCELLANE PRN (08:01)
--- NOTE | 2022-01-02 08:10 | P.PCN ---
Date of Procedure: 01/02/22 Operative Findings: CARDIAC CATHETERIZATION PERFORMING PHYSICIAN: Peter Gambino MD, RPVI PROCEDURE PERFORMED: 1. Selective right and left coronary angiogram 2. 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 Local anesthesia was performed using lidocaine subcutaneously. The right radial artery was cannulated using Seldinger technique, the guidewire passed easily, following that we advanced a 5-[place] sheath dilator assembly, the wire and dilator were removed and sheath was flushed. Following that, 2 mg of verapamil along with 5000 unit heparin were given. Selective right and left coronary angiogram using a 6-[place] JR4 and JL 3.5 catheters. Following that we did left heart catheterization using 6-[place] pigtail catheter. The procedure was completed there was no complication. SELECTIVE CORONARY ANGIOGRAM: The right coronary artery: Is angiographically normal. Distally bifurcates into PDA and PLV branches both appeared to be angiographically normal Left main: Calcified but no obstructive disease seen The left circumflex: Is angiographically normal. On dominant vessel. Gives rises The left anterior descending artery: Is angiographically normal. Gives rises into 3 diagonal branches appeared to be angiographically normal. HEMODYNAMICS: The LVEDP was 12 mmHg was no significant gradient across aortic valve CONCLUSION: 1. Normal coronary angiogram 2. Normal left-sided filling pressure POSTPROCEDURE MANAGEMENT: Medical treatment and follow-up with the base
[2022-01-02] MEDS ORDERED: SODIUM CHLORIDE 0.9% 1,000 ML IV SCH (08:15)
[2022-01-02 12:21] VITALS: BP 136/72; PULSE 55
== END 2022-01-02 11:47 | disposition home or self-care (01) ==
LOC: CATHCVL 06:20
PROVIDERS: ATTEND Internal Medicine Interventional Cardiology
DX: I25.10 Atherosclerotic heart disease of native coronary artery without angina pectoris (principal); I10 Essential (primary) hypertension; E78.5 Hyperlipidemia, unspecified; J44.9 Chronic obstructive pulmonary disease, unspecified; Z20.822 Contact with and (suspected) exposure to COVID-19
CPT/HCPCS: 93458; 87635; C1769 ×2; C1894; C1751; J2250; J2001; J1644; Q9967

== ENCOUNTER → 2024-02-09 | Outpatient (CLI) | payer MEDICARE ==
[2024-02-09 19:08] LABS: ALT 86 U/L (8-44); AST 47 U/L (13-35); Chol/HDL Ratio 5.98 Ratio; LDL Cholesterol,Calculated 150.2 mg/dL (0.0-131.0)
== END | disposition home or self-care (01) ==
LOC: LABWHC1 12:25
PROVIDERS: ATTEND Internal Medicine Interventional Cardiology
DX: E78.00 Pure hypercholesterolemia, unspecified (principal)
CPT/HCPCS: 36415; 80061; 84450; 84460

== ENCOUNTER → 2024-08-05 | Outpatient (CLI) | payer MEDICARE ==
--- NOTE | 2024-08-05 14:25 | CT ---
EXAMINATION TYPE: CT sinus wo con CT DLP: 603 mGycm, Automated exposure control for dose reduction was used. DATE OF EXAM: 08/05/2024 2:01 PM COMPARISON: CT sinus 05/02/2019. CLINICAL INDICATION:Female, 64 years old with history of J32.0 CHRONIC SINUSITIS M54.12 CERVICAL RADI CULOPA; PHH, Chronic sinusitis. CONTRAST: None. TECHNIQUE: Multiple thin axial images were obtained through the paranasal sinuses without the use of IV contrast. Additional coronal and sagittal reformatted images were submitted for evaluation. FINDINGS: Dental amalgam creates streak artifact which limits evaluation. Frontal sinuses: Normally developed and aerated. Frontal Recess: Clear Maxillary Sinuses: Normally developed. Postsurgical changes of the medial wall from antrostomy of bot h maxillary sinuses. Minimal mucosal thickening of the bilateral maxillary sinuses. Maxillary Infundibula([facility]): Clear, postsurgical changes. No Jovanni cells. Ethmoid sinuses: Normally developed. Mild mucosal thickening of both ethmoid sinuses with partial eth moidectomy changes. Ethmoidal notch: Protected and abutting the lateral lamina. Sphenoid sinuses: Normally developed. The right larger sphenoid sinus is well aerated. Minimal mucosa l thickening of the small left sphenoid sinus. There is sellar sphenoid sinus pneumatization without evidence of dehiscence. No dehiscence of carotid canal. No evidence of optic nerve dehiscence within the sphenoid sinus. No evidence of Onodi cells. Sphenoethmoidal recesses: Opacified. Nasal septum: Within normal limits.. Nasal Turbinates: Within normal limits. Mastoid air cells & middle ears: The air cells are clear. The middle ears are grossly unremarkable. Modified Soft tissues & Brain: Partially seen without gross abnormality. Bilateral aphakia. Calcifica tion of the bilateral carotid arteries. Other: Cribriform plate demonstrates symmetric Keros classification type 2 cribriform plate. No evidence of bony dehiscence of skull base. Lamina papyracea is intact without evidence of remote orbital fracture or orbital prolapse into the e thmoid sinus. IMPRESSION: Postsurgical changes of the bilateral maxillary and ethmoid sinuses with minimal mucosal thickening. Improved from prior CT 05/02/2019. [facility], , 08/05/2024 2:23 PM
--- NOTE | 2024-08-05 14:39 | CT ---
EXAMINATION TYPE: CT soft tissue neck w con CT DLP: 656 mGycm, Automated exposure control for dose reduction was used. DATE OF EXAM: 08/05/2024 2:02 PM COMPARISON: CT soft tissue neck 05/14/2019. CLINICAL INDICATION:Female, 64 years old with history of J32.0 CHRONIC SINUSITIS M54.12 CERVICAL RADI CULOPA; PHH, Cervical radiculopathy TECHNIQUE: Standard enhanced CT of the neck following intravenous administration of 100 cc of Isovue 300. Axial sections with coronal and sagittal reformats were obtained. FINDINGS: Dental amalgam creates streak artifact which limits evaluation. Brain: Visualized portions are grossly unremarkable. Orbits: Bilateral aphakia. Sinuses: Please refer to dedicated CT sinus the same day for findings. Suprahyoid Neck: The oropharynx, oral cavity, parapharyngeal and retropharyngeal spaces are clear and symmetric. The nasopharynx is unremarkable. Infrahyoid Neck: The larynx, hypopharynx, and supraglottic area are clear and symmetric. Parotid Glands: Unremarkable. Submandibular Glands: Unremarkable. Musculoskeletal: No acute osseous pathology. Postsurgical changes from anterior cervical fusion invol ving C5-C7 with disc spacers. Hardware appears intact with appropriate alignment. Grade 1 anterolisth esis of C3 on C4, C4-C5, and C7 on T1. Multilevel facet arthropathy. No significant central canal jhon nosis. Moderate right neural foraminal stenosis that C3-C4. Moderate bilateral neural foraminal steno sis at C6-C7. Lymph nodes: No pathologically enlarged lymph nodes identified. Vascular structures: Visualized major arteries are patent without evidence of aneurysm. Thoracic Inlet/airway: Airway is patent. The lung apices are clear. Soft tissues/Thyroid: Thyroid and remainder of the soft tissues are unremarkable. Other: none. IMPRESSION 1. No evidence for neck mass. 2. Postsurgical changes from ACDF C5-C7. Hardware appears intact. Multilevel degenerative disc diseas e and facet arthropathy described above. [facility], , 08/05/2024 2:37 PM
== END | disposition home or self-care (01) ==
LOC: RADCTMAIN 13:20
PROVIDERS: ATTEND Internal Medicine
DX: J32.0 Chronic maxillary sinusitis (principal); J34.89 Other specified disorders of nose and nasal sinuses; M50.122 Cervical disc disorder at C5-C6 level with radiculopathy; M47.22 Other spondylosis with radiculopathy, cervical region; M99.71 Connective tissue and disc stenosis of intervertebral foramina of cervical region; M43.12 Spondylolisthesis, cervical region; Z98.1 Arthrodesis status
CPT/HCPCS: 70491; 70486; Q9967

== ENCOUNTER → 2024-08-18 | Outpatient (CLI) | payer MEDICARE ==
[2024-08-18 21:04] LABS: Alternaria alternata IgE <0.10 kU/L; Aspergillus fumagatus IgE 0.48 kU/L; Birch IgE <0.10 kU/L; Cat Epith & Dander IgE <0.10 kU/L; Cladosporian herbarum IgE <0.10 kU/L; Cockroach IgE <0.10 kU/L; Dermato. farinae IgE <0.10 kU/L; Dog Dander IgE <0.10 kU/L; Elm IgE <0.10 kU/L; Maple (Box Elder) IgE <0.10 kU/L; Oak IgE <0.10 kU/L; Ragweed,Common IgE <0.10 kU/L; Red Top (Bentgrass) IgE <0.10 kU/L
[2024-08-18 21:31] LABS: Immunoglobulin E 5.23 IU/mL (0.00-114.00)
== END | disposition home or self-care (01) ==
LOC: LABWHC1 12:27
PROVIDERS: ATTEND Otolaryngology
DX: J30.89 Other allergic rhinitis (principal)
CPT/HCPCS: 36415; 82785; 86003

== ENCOUNTER → 2024-11-29 | Outpatient (CLI) | payer MEDICARE ==
--- NOTE | 2024-11-29 11:15 | US ---
EXAMINATION TYPE: US thyroid st tissue head/neck DATE OF EXAM: 11/29/2024 COMPARISON: CT soft tissue neck 08/05/2024, 05/14/2019, CLINICAL INDICATION: Female, 64 years old with history of E04.1 THYROID NODULE; Nodule per order TECHNIQUE: Grayscale and color Doppler imaging of the thyroid gland. FINDINGS: GLAND SIZE: Right Lobe: 4.7 x 1.8 x 1.3 cm Overall Parenchyma: homogeneous Left Lobe: 4.6 x 1.5 x 1.2 cm Overall Parenchyma: homogeneous Isthmus Thickness: 0.18 cm NODULES RIGHT: # of nodules measured on right: 1 less than 5 mm nodule seen, not fully measured. Demonstra annalee some comet tail artifact. LEFT: # of nodules measured on left: 0 ISTHMUS: # of nodules measured in the isthmus: 0 Bilateral neck scanned, hypoechoic area seen left neck: 0.7 x 1.0 x 0.4 cm. IMPRESSION: 1. Tiny left subcentimeter thyroid nodule. Appears to represent a colloid cyst. No follow-up recomme nded. 2. Left neck 1 cm probable lymph node. [facility], , 11/29/2024 11:12 AM
== END | disposition home or self-care (01) ==
LOC: RADUSWWP 10:26
PROVIDERS: ATTEND Family Medicine
DX: E04.1 Nontoxic single thyroid nodule (principal)
CPT/HCPCS: 76536

== ENCOUNTER → 2024-11-29 | Outpatient (CLI) | payer MEDICARE ==
--- NOTE | 2024-11-29 12:20 | MM ---
Reason for Exam: Screening (asymptomatic). Last mammogram was performed 1 year(s) and 10 month(s) ago. Patient History: Menarche at age 13. First Full-Term at age 31. Late child-bearing (after 31). Postmenopausal. Other cancer, age 57. Estrogen for 6 months. Progesterone for 6 months. Hormonal Contraceptives for 9 years from age 19 until age 30. 02/20/2021, Benign Core Biopsy on the left side. 03/10/2012, High risk Excisional Biopsy on the right side. 02/27/2012, High risk Core Biopsy on the right side. 10/04/2008, Benign Core Biopsy on the left side. Maternal aunt had breast cancer, age 60. Mother had breast cancer, age 55. Risk Values: Mercedes 5 year model risk: 4.7%. NCI Lifetime model risk: 19.0%. Prior Study Comparison: 02/20/2021 Left Diagnostic Mammogram, [facility]. 08/12/2021 Bilateral Diagnostic Mammogram, [facility]. 02/16/2023 Bilateral MG 3D diag mammo w/cad ELIS[place]ET, [facility]. Tissue Density: The breasts are heterogeneously dense, which may obscure small masses. Findings: Analyzed By CAD. Stable chronic nodularity bilaterally. Mammotome biopsy clip left breast is redemonstrated. Benign-appearing bilateral axillary lymph nodes are again seen. There is no suspicious group of microcalcifications or new or enlarging suspicious mass in either breast. Overall Assessment: Benign, BI-RAD 2 Management: Screening Mammogram of both breasts in 1 year. . Patient should continue monthly self-breast exams. A clinical breast exam by your physician is recommended on an annual basis. This exam should not preclude additional follow-up of suspicious palpable abnormalities. Note on Mercedes scores and lifetime risk: 1. A Mercedes score greater than 3% is considered moderate risk. If this is the case, consider specialist referral to assess eligibility for a risk reducing agent. 2. If overall lifetime risk for the development of breast cancer is 20% or higher, the patient may qualify for future screening with alternating mammogram and breast MRI. [facility], , 11/29/2024 12:16 PM. Electronically signed and approved by: Eliseo Gupta M.D.
== END | disposition home or self-care (01) ==
LOC: RADMAMWWP 10:24
PROVIDERS: ATTEND Family Medicine
DX: Z12.31 Encounter for screening mammogram for malignant neoplasm of breast (principal); R92.333 Mammographic heterogeneous density, bilateral breasts; Z78.0 Asymptomatic menopausal state; Z80.3 Family history of malignant neoplasm of breast; Z92.0 Personal history of contraception
CPT/HCPCS: 77063; 77067

== ENCOUNTER → 2024-12-14 | Outpatient (CLI) | payer MEDICARE ==
--- NOTE | 2024-12-14 16:16 | CT ---
EXAMINATION TYPE: CT soft tissue neck w con DATE OF EXAM: 12/14/2024 10:01 AM COMPARISON: 08/05/2024. CLINICAL INDICATION: Female, 64 years old with history of R22.1 LOCALIZED SWELLING, MASS AND LUMP, NE CK; PHH, swelling, mass and lump TECHNIQUE: Standard enhanced CT of the neck. Axial sections with coronal and sagittal reformats were obtained. Contrast used:100ml mL of Isovue 300 with IV Contrast, CT DLP: 461 mGycm, Automated exposure control for dose reduction was used. FINDINGS: Visualized intracranial structures, orbits and globes, and mastoid air cells appear clear. Postsurgical change of prior medial maxillary antrectomies on both sides. Paranasal sinuses appear cl ear. There is asymmetric soft tissue right posterior nasopharynx measuring 1.4 cm for which direct visuali zation is recommended. Unclear if this represents asymmetric adenoid hypertrophy or mucosal lesion. Mild to moderate bilateral palatine tonsillar hypertrophy. Some focal 6 mm nodularity at the lower le ft palatoglossal arch, near the lateral left tongue axial image 37 and sagittal image 65. Possible as ymmetric lingual tonsillar hypertrophy. Some asymmetric nodularity also extends into the left vallecu lar space, axial image 40. Direct visualization recommended. Otherwise, the prevertebral soft tissues are satisfactory. There is a 7 mm nodular density at the left posterior hypopharynx just behind the level of the false vocal cords. Axial image 47. The tracheal column and visualized upper lungs appear clear. Bovine configuration to the aortic arch. Thyroid gland, submandibular glands, and parotid glands are satisfactory. Palpable marker placed along the left upper neck. This is located just below the level of the submand ibular gland. There is mild atherosclerotic calcification of the left carotid bifurcation here. No cervical lymphadenopathy by CT size criteria. Prominent but nonenlarged lymph nodes which were pre viously present along both sides of the neck appear to have decreased in size, suggesting a reactive etiology. Bones: Patient status post C5-C7 ACDF. Degenerative grade 1 anterolisthesis C3-C4. Hypertrophic facet arthropathy especially lower cervical spine on the left and upper cervical spine on the right. IMPRESSION: 1. A few findings for which direct visualization is recommended to exclude mucosal lesions: 2. Asymmetric soft tissue right posterior nasopharynx measuring 1.4 cm. 3. 6 mm nodularity at the base of the left palatoglossal arch as well as asymmetric nodularity extend ing into the left vallecular space. 4. A 7 mm nodule at the left posterior hypopharynx just behind the level of the false vocal cords, ax ial image 47. 5. Palpable marker along the left upper neck. This is located just below the level of the left subman dibular gland. No suspicious adenopathy or mass here. [facility], Workstation: [facility], 12/14/2024 4:14 PM
== END | disposition home or self-care (01) ==
LOC: RADCTMAIN 09:27
PROVIDERS: ATTEND Family Medicine
DX: E04.2 Nontoxic multinodular goiter (principal)
CPT/HCPCS: 70491; Q9967